=== PATIENT | female | born 1975 | race Caucasian/White ===

== ENCOUNTER 2018-07-19 15:34 | Emergency (ER) | payer MEDICAID, SELFPAY ==
[2018-07-19 15:41] VITALS: BP 161/91; PULSE 70; RESP 17; TEMP 36.7; O2SAT 99
[2018-07-19 18:46] LABS: Abs Immature Grans 0.02 k/cumm (0.0-0.09); Absolute Basophil Count 0.03 k/cumm (0.0-0.2); Absolute Eosinophil Count 0.19 k/cumm (0.0-0.7); Absolute Lymphocyte Count 3.41 k/cumm (1.2-3.4); Absolute Monocyte Count 1.06 k/cumm (0.11-0.7); Basophils % 0.2; Eosinophils % 1.3; HCT 38.5 % (36.0-46.0); HGB 12.6 g/dL (12.0-15.5); Immature Grans % 0.1; Lymphocytes % 23.4; Mean Corp. HGB Concentration 32.7 g/dL (32.0-36.0); Mean Corpuscular Hemoglobin 28.9 pg (27.0-33.0); Mean Corpuscular Volume 88.3 fL (80-95); Mean Platelet Volume 9.7 fL (8.0-11.0); Monocytes % 7.3; Neutrophils % 67.7; Platelet Count 361 x1000/uL (130-400); RBC 4.36 m/cumm (4.00-5.20); RBC Distribution Width 13.9 % (11.7-14.6); White Blood Cell Count 14.56 k/cumm (4.4-10.8)
[2018-07-19 18:50] LABS: Absolute Neutrophil Count 9.86 k/cumm (1.2-6.7)
[2018-07-19 18:54] LABS: Mono Screening Negative (Negative)
--- NOTE | 2018-07-19 19:14 | W.ED.GENAD ---
Discharge Plan Disposition Patient Disposition: HOME Condition: Good Discharge Details Chief Complaint: FacialProb Clinical Impression: Lymphadenopathy Primary Care Provider: Bhavna Ambrose ED Provider: Elio Pritchett Home Meds and New Rx's Prescriptions: Continue sumatriptan succinate 50 MG tablet 2 tab PO PRN PRNRF: 0 Discharge Instructions Instructions: Lymphadenopathy (ED) Additional Instructions: Return immediately to the emergency department for any new or worsening symptoms otherwise follow-up with your primary care provider later this week for reassessment Referrals: Bhavna Ambrose, [employer]ER [Primary Care Provider] - 1 week Discharge Data Discharge Date/Time-TO BE ENTERED AT DEPARTURE: 07/19/18 19:32 Medical Decision Making Patient presenting to the emergency department for chief complaint of swollen lymph node. She states it felt pea-sized and small this morning but throughout the day has increased. Patient denies any nasal congestion, cough cold, sore throat, fever chills, weight loss or weight gain. Given the patient does have unknown lymphadenopathy do feel that labs along with mono testing is warranted. After review of labs patient does have significant leukocytosis but negative Monospot. Given no specific other findings patient was given strict return precautions for any new or worsening symptoms otherwise to follow-up with her primary care provider this next week for reassessment of unknown lymphadenopathy. Given 1 day of rapid progression in size and elevated white count I feel that this is more than likely a reactive lymphadenopathy. after discussion of diagnosis and plan of care patient is no further needs, questions, or concerns and states clear understanding to return to the emergency department for any worsening symptoms. Lab Data Lab results reviewed: Yes I reviewed the patient's lab results. HPI General Mode of arrival: ambulatory. Date/Time Provider Initiated Documentation: 07/19/18 15:57. Limitations to Documentation: no limitations. Information obtained by: patient and RN notes reviewed. History of Present Illness 42 year old F presents to the emergency department with the chief complaint of Swollen lymph node, described as mild, with intensity rated at 4. Quality is described as dull, and is localized to the neck and right. Patient reports no radiation. Patient started experiencing this day(s) (1) and it has been constant. No relieving factors improve symptom(s), No exacerbating factors reported . Patient notes no other symptoms.. Patient did receive the following treatments prior to arrival, none Related Data Home Medications Medication Instructions Recorded Confirmed sumatriptan succinate 2 tab PO PRN PRN 03/10/17 07/19/18 Allergies Allergy/AdvReac Type Severity Reaction Status Date / Time erythromycin base AdvReac Intermediate Skin Rash Unverified 07/19/18 15:44 [Erythromycin Base] General Stated Complaint: FacialProb OLIVIA: 3 Review of Systems Constitutional Denies body ache(s), Denies chills, Denies fatigue, Denies fever(s), Denies headache(s), Denies lethargy and Denies malaise ENT Denies dental pain, Denies ear discharge, Denies otalgia, Denies facial pain, Denies headache(s), Denies nasal congestion, Denies neck pain, Denies post nasal drip, Denies sinus pain, Denies sore throat, Denies throat swelling and Denies tongue swelling Cardiovascular Denies chest pain and Denies dyspnea Respiratory Denies dyspnea Musculoskeletal Denies neck pain Integumentary/Breasts Denies rash Neurologic Denies confusion, Denies headache(s) and Denies sensory deficit Psychiatric Denies confusion Endocrine Denies fatigue Hematologic/Lymphatic Reports as per HPI and Reports lymphadenopathy Allergic/Immunologic Denies throat swelling and Denies tongue swelling PFSH Social History Smoking/Tobacco Use Status: Former Tobacco Use Exam Const General: cooperative, no acute distress and not ill appearing Orientation: alert, awake and oriented x3 HENMT Head: normal to inspection Ears: hearing grossly normal bilaterally and TM's normal bilaterally General nose exam: external nose normal Face and sinus: normal facial exam Mouth: oral mucosae normal and moist mucous membranes Teeth and gingiva: dentition normal Throat: posterior oropharynx normal Neck Lymphatic: lymphadenopathy (Right superior cervical single lymph node approximately 6-7mm) Resp Effort & Inspection: normal respiratory effort, able to speak in complete sentences and no respiratory distress Auscultation: clear to auscultation bilaterally Cardio Rate: regular rate Rhythm: regular rhythm Heart Sounds: S1 normal and S2 normal Skin General skin exam: no rashes or lesions noted Neuro General: alert, awake, oriented x3, moves all extremities and no focal motor deficits Sensory Exam: no sensory deficits noted Course Vital Signs Temperature 36.7 C 07/19/18 15:41 Pulse 70 07/19/18 15:41 Respiratory Rate 17 07/19/18 15:41 Blood Pressure 161/91 H 07/19/18 15:41 Pulse Oximetry 99 09/30/18 15:41 Temperature 36.7 C 07/19/18 15:41 Temperature Source Skin 07/19/18 15:41 Pulse 70 07/19/18 15:41 Respiratory Rate 17 07/19/18 15:41 Respiratory Effort 07/19/18 15:43 Blood Pressure 161/91 H 07/19/18 15:41 Blood Pressure Position Sitting 07/19/18 15:41 Pulse Oximetry 99 07/19/18 15:41 Oxygen Delivery Method Room Air 07/19/18 15:41 Oxygen Flow Rate 0 07/19/18 15:41 Pain Level 3 07/19/18 15:45 Lab/Test Results Lab/Test Results: Laboratory Tests Range/Units 07/19/18 07/19/18 18:40 18:40 WBC (4.4-10.8) k/cumm 14.56 H RBC (4.00-5.20) m/cumm 4.36 Hgb (12.0-15.5) g/dL 12.6 Hct (36.0-46.0) % 38.5 MCV (80-95) fL 88.3 MCH (27.0-33.0) pg 28.9 MCHC (32.0-36.0) g/dL 32.7 RDW (11.7-14.6) % 13.9 Plt Count (130-400) x1000/uL 361 MPV (8.0-11.0) fL 9.7 Immature Gran % 0.1 Neutrophils % 67.7 Lymphocytes % 23.4 Monocytes % 7.3 Eosinophils % 1.3 Basophils % 0.2 Absolute Neutrophils (1.2-6.7) k/cumm 9.86 H Absolute Lymphocytes (1.2-3.4) k/cumm 3.41 H Absolute Monocytes (0.11-0.7) k/cumm 1.06 H Absolute Eosinophils (0.0-0.7) k/cumm 0.19 Absolute Basophils (0.0-0.2) k/cumm 0.03 Monoscreen (Negative) Negative
--- NOTE | 2018-07-19 19:19 | ED.GENADUL_ITS ---
Discharge Plan Disposition Patient Disposition: HOME Condition: Good Discharge Details Chief Complaint: FacialProb Clinical Impression: Lymphadenopathy Primary Care Provider: Bhavna Ambrose ED Provider: Elio Pritchett Home Meds and New Rx's Prescriptions: Continue sumatriptan succinate 50 MG tablet 2 tab PO PRN PRNRF: 0 Discharge Instructions Instructions: Lymphadenopathy (ED) Additional Instructions: Return immediately to the emergency department for any new or worsening symptoms otherwise follow-up with your primary care provider later this week for reassessment Referrals: Bhavna Ambrose, MISSI[employer] INSPECTOR [employer] [Primary Care Provider] - 1 week Discharge Data Discharge Date/Time-TO BE ENTERED AT DEPARTURE: 07/19/18 19:32 Medical Decision Making Patient presenting to the emergency department for chief complaint of swollen lymph node. She states it felt pea-sized and small this morning but throughout the day has increased. Patient denies any nasal congestion, cough cold, sore throat, fever chills, weight loss or weight gain. Given the patient does have unknown lymphadenopathy do feel that labs along with mono testing is warranted. After review of labs patient does have significant leukocytosis but negative Monospot. Given no specific other findings patient was given strict return precautions for any new or worsening symptoms otherwise to follow-up with her primary care provider this next week for reassessment of unknown lymphadenopathy. Given 1 day of rapid progression in size and elevated white count I feel that this is more than likely a reactive lymphadenopathy. after discussion of diagnosis and plan of care patient is no further needs, questions , or concerns and states clear understanding to return to the emergency department for any worsening symptoms. Lab Data Lab results reviewed: Yes I reviewed the patient's lab results. HPI General Mode of arrival: ambulatory . Date/Time Provider Initiated Documentation: 07/19/18 15:57 . Limitations to Documentation: no limitations . Information obtained by: patient and RN notes reviewed . History of Present Illness 42 year old F presents to the emergency department with the chief complaint of Swollen lymph node, described as mild, with intensity rated at 4. Quality is described as dull, and is localized to the neck and right. Patient reports no radiation. Patient started experiencing this day(s) (1) and it has been constant. No relieving factors improve symptom(s), No exacerbating factors reported . Patient notes no other symptoms.. Patient did receive the following treatments prior to arrival, none Related Data Home Medications Medication Instructions Recorded Confirmed sumatriptan succinate 2 tab PO PRN PRN 03/10/17 07/19/18 Allergies Allergy/AdvReac Type Severity Reaction Status Date / Time erythromycin base AdvReac Intermediate Skin Rash Unverified 07/19/18 15:44 [Erythromycin Base] General Stated Complaint: FacialProb OLIVIA: 3 Review of Systems Constitutional Denies body ache(s), Denies chills, Denies fatigue, Denies fever(s), Denies headache(s), Denies lethargy and Denies malaise ENT Denies dental pain, Denies ear discharge, Denies otalgia, Denies facial pain, Denies headache(s), Denies nasal congestion, Denies neck pain, Denies post nasal drip, Denies sinus pain, Denies sore throat, Denies throat swelling and Denies tongue swelling Cardiovascular Denies chest pain and Denies dyspnea Respiratory Denies dyspnea Musculoskeletal Denies neck pain Integumentary/Breasts Denies rash Neurologic Denies confusion, Denies headache(s) and Denies sensory deficit Psychiatric Denies confusion Endocrine Denies fatigue Hematologic/Lymphatic Reports as per HPI and Reports lymphadenopathy Allergic/Immunologic Denies throat swelling and Denies tongue swelling PFSH Social History Smoking/Tobacco Use Status: Former Tobacco Use Exam Const General: cooperative, no acute distress and not ill appearing Orientation: alert, awake and oriented x3 HENMT Head: normal to inspection Ears: hearing grossly normal bilaterally and TM's normal bilaterally General nose exam: external nose normal Face and sinus: normal facial exam Mouth: oral mucosae normal and moist mucous membranes Teeth and gingiva: dentition normal Throat: posterior oropharynx normal Neck Lymphatic: lymphadenopathy (Right superior cervical single lymph node approximately 6-7mm) Resp Effort & Inspection: normal respiratory effort, able to speak in complete sentences and no respiratory distress Auscultation: clear to auscultation bilaterally Cardio Rate: regular rate Rhythm: regular rhythm Heart Sounds: S1 normal and S2 normal Skin General skin exam: no rashes or lesions noted Neuro General: alert, awake, oriented x3, moves all extremities and no focal motor deficits Sensory Exam: no sensory deficits noted Course Vital Signs Temperature 36.7 C 07/19/18 15:41 Pulse 70 07/19/18 15:41 Respiratory Rate 17 07/19/18 15:41 Blood Pressure 161/91 H 07/19/18 15:41 Pulse Oximetry 99 09/30/18 15:41 Temperature 36.7 C 07/19/18 15:41 Temperature Source Skin 07/19/18 15:41 Pulse 70 07/19/18 15:41 Respiratory Rate 17 07/19/18 15:41 Respiratory Effort 07/19/18 15:43 Blood Pressure 161/91 H 07/19/18 15:41 Blood Pressure Position Sitting 07/19/18 15:41 Pulse Oximetry 99 07/19/18 15:41 Oxygen Delivery Method Room Air 07/19/18 15:41 Oxygen Flow Rate 0 07/19/18 15:41 Pain Level 3 07/19/18 15:45 Lab/Test Results Lab/Test Results: Laboratory Tests Range/Units 07/19/18 07/19/18 18:40 18:40 WBC (4.4-10.8) k/cumm 14.56 H RBC (4.00-5.20) m/cumm 4.36 Hgb (12.0-15.5) g/dL 12.6 Hct (36.0-46.0) % 38.5 MCV (80-95) fL 88.3 MCH (27.0-33.0) pg 28.9 MCHC (32.0-36.0) g/dL 32.7 RDW (11.7-14.6) % 13.9 Plt Count (130-400) x1000/uL 361 MPV (8.0-11.0) fL 9.7 Immature Gran % 0.1 Neutrophils % 67.7 Lymphocytes % 23.4 Monocytes % 7.3 Eosinophils % 1.3 Basophils % 0.2 Absolute Neutrophils (1.2-6.7) k/cumm 9.86 H Absolute Lymphocytes (1.2-3.4) k/cumm 3.41 H Absolute Monocytes (0.11-0.7) k/cumm 1.06 H Absolute Eosinophils (0.0-0.7) k/cumm 0.19 Absolute Basophils (0.0-0.2) k/cumm 0.03 Monoscreen (Negative) Negative
[2018-07-19 19:34] VITALS: BP 112/80; PULSE 88; RESP 18; TEMP 36.8; O2SAT 99
--- NOTE | 2018-07-20 09:24 | PDOC.ERCMPRO ---
Care Management Progress Note 07/20/18-Pt was seen on 07/19/18 for facial lympadenopathy byJeremiah Martinez NP. Request for 1 week f/u faxed to [facility] as Bhavna Ambrose is Pt's PCP.
--- NOTE | 2018-07-20 09:38 | CMPROGNOTE_ITS ---
Care Management Progress Note 07/20/18-Pt was seen on 07/19/18 for facial lympadenopathy byJeremiah Martinez NP. Request for 1 week f/u faxed to [facility] as Bhavna Ambrose is Pt's PCP.
== END 2018-07-19 19:32 | disposition home or self-care (01) ==
PROVIDERS: Emergency Provider Nurse Practitioner Family
DX: R59.0 Localized enlarged lymph nodes (principal)
CPT/HCPCS: 36415; 99281; 85025; 86308

== ENCOUNTER 2018-07-28 01:57 | Outpatient (CLI) | payer MEDICAID, SELFPAY ==
[2018-07-28 10:12] LABS: ALT 18 U/L (12-78); AST 9 U/L (15-37); Albumin 3.6 g/dL (3.4-5.0); Alkaline Phosphatase 78 U/L (46-116); Anion Gap 7.3 mmol/L (3-11); BUN 11 mg/dL (7-18); Bilirubin, Total 0.1 mg/dL (0.2-1.0); CO2 27.7 mmol/L (21.0-32.0); CREATININE 0.82 mg/dL (0.55-1.02); Calcium 8.3 mg/dL (8.5-10.1); Chloride 106 mmol/L (98-107); Cholesterol 153 mg/dL (50-200); Glucose 87 mg/dL (70-100); HDL Cholesterol 47 mg/dL (40-60); LDL CHOLESTEROL 92 mg/dL (<100); Potassium 4.2 mmol/L (3.5-5.1); Sodium 141 mmol/L (136-145); Total Protein 7.3 g/dL (6.4-8.2); Triglyceride 59 mg/dL (30-150)
== END 2018-07-28 02:17 ==
DX: G43.909 Migraine, unspecified, not intractable, without status migrainosus (principal); F41.9 Anxiety disorder, unspecified; F32.9 Major depressive disorder, single episode, unspecified; M54.5 Low back pain; G89.29 Other chronic pain; E66.9 Obesity, unspecified
CPT/HCPCS: 36415; 80053; 80061; 83721

== ENCOUNTER 2018-08-06 01:28 | Outpatient (CLI) | payer MEDICAID, SELFPAY ==
--- NOTE | 2018-08-06 15:07 | DI.MAMMO_ITS ---
SYMPTOM/DIAGNOSIS: SCREENING, Z12.31, BASELINE MAMMOGRAMS: Mammograms were interpreted according to the usual protocol including computer analysis with CAD system, tomosynthesis and C view imaging. The breast tissue is of moderate radiodensity. There is no evidence of a mass. There are no suspicious calcifications and there is no evidence of malignancy. SUMMARY: The baseline examination represents a Category 1 study. Routine annual screening mammography is recommended. Breast density, category B. SA ASSESSMENT OF FINDINGS: Negative. Category 1. Patient will receive a letter notifying them of these results. BI-RADS category B. There are scattered areas of fibroglandular density.
== END 2018-08-06 01:48 ==
DX: Z12.31 Encounter for screening mammogram for malignant neoplasm of breast (principal)
CPT/HCPCS: 77063; 77067

== ENCOUNTER 2018-10-23 10:08 | Emergency (ER) | payer MEDICAID, SELFPAY ==
[2018-10-23 10:19] VITALS: BP 159/85; PULSE 68; RESP 16; TEMP 36; O2SAT 100
--- NOTE | 2018-10-23 12:44 | W.ED.GENAD ---
Discharge Plan Disposition Patient Disposition: HOME Condition: Stable Discharge Details Chief Complaint: FacialProb Clinical Impression: Facial swelling Primary Care Provider: Bhanva Ambrose ED Provider: Jocelyn Leonardo Home Meds and New Rx's Prescriptions: New amoxicillin-pot clavulanate [Augmentin] 875-125 mg tablet 1 tab PO BID 10 Days Qty: 20 RF: 0 Continued sumatriptan succinate 100 mg tablet See Rx Instructions PO .COMPLEX Qty: 10 RF: 0 Discharge Instructions Instructions: Dental Caries (ED), Sinusitis (ED) Additional Instructions: Alternate Tylenol and Motrin as needed and directed for pain Take the antibiotics until finished. Follow-up with your primary care doctor in 1 week for reevaluation. Follow-up with your dentist for reevaluation. Return immediately to the emergency department any worsening or new concerning symptoms such as fever, headache, neck pain or any other concerns. Discharge Data Discharge Date/Time-TO BE ENTERED AT DEPARTURE: 10/23/18 13:25 Discharge Physician: Jocelyn Leonardo Medical Decision Making Patient is a 42-year-old female with a history of anxiety and migraines who presents with facial pain since yesterday morning. Patient states she feels like she has swelling and pain just below her nose and above her upper teeth. She denies any known fever, nasal discharge or known dental pain or injury. Blood pressure mildly hypertensive. Afebrile. Patient appears nontoxic. She has mild edema and tenderness to palpation just below bilateral nares. She has tenderness to palpation above the upper teeth in the front but no obvious abscess. No teeth tender to palpation. Sinuses nontender bilaterally. No lymphadenopathy. No meningeal signs. Remainder of ENT exam within normal limits, with normal oropharynx and TMs bilaterally. Differential diagnosis includes sinus infection, dental infection, cellulitis. As patient appears nontoxic and in no acute distress, and no fever, I do not see an indication for labs or imaging at this time patient is agreeable. Due to mild edema and pain, will treat with antibiotics for possible infection. Patient offered dose here but declines and will fill prescription. Will send home with Augmentin to cover for possible dental versus sinus infection. Pt was instructed to return immediately to the emergency department if she develops any fevers, headaches, neck pain or any worsening symptoms. HPI General Mode of arrival: ambulatory. Date/Time Provider Initiated Documentation: 10/23/18 10:33. Limitations to Documentation: no limitations. Information obtained by: patient. HPI Narrative: Patient is a 42-year-old female who presents with facial pain and swelling since yesterday morning. Patient states she awoke and noted the area right below her nose and above her upper lip and teeth to be swollen and painful. She states the swelling and pain is increased since then. Patient has been taking Tylenol and Motrin for pain without relief. Patient denies any known fever, nasal discharge, sore throat, ear pain, neck pain, headache. She denies any known dental injury or dental pain. Related Data Home Medications Medication Instructions Recorded Confirmed sumatriptan 100 mg tablet See Rx Instructions PO .COMPLEX 07/27/18 10/23/18 #10 tab amoxicillin-pot clavulanate 1 tab PO BID 10 Days #20 tab 10/23/18 [Augmentin] Previous Rx's Medication Instructions Recorded sumatriptan 100 mg tablet See Rx Instructions PO .COMPLEX 07/27/18 #10 tab amoxicillin-pot clavulanate 1 tab PO BID 10 Days #20 tab 10/23/18 [Augmentin] Allergies Allergy/AdvReac Type Severity Reaction Status Date / Time erythromycin base AdvReac Intermediate Skin Rash Unverified 10/23/18 10:24 [Erythromycin Base] General Stated Complaint: FacialProb OLIVIA: 3 Review of Systems Review of Systems All systems reviewed & are unremarkable except as noted in HPI and below Constitutional Reports as per HPI, Denies chills and Denies fever(s) Eyes Denies blurry vision ENT Denies dizziness, Reports facial pain, Denies sore throat, Denies throat swelling and Reports other (Facial swelling) Cardiovascular Denies chest pain and Denies dyspnea Respiratory Denies dyspnea Gastrointestinal Denies abdominal pain, Denies diarrhea and Denies vomiting Genitourinary Denies hematuria and Denies dysuria Musculoskeletal Denies back pain and Denies numbness Integumentary/Breasts Denies lesions and Denies rash Neurologic Denies dizziness and Denies numbness Allergic/Immunologic Denies throat swelling [facility] Medical History Anxiety (Chronic) Migraine (Chronic) Surgical History History of bilateral tubal ligation (Acute) Family History Mother Alcohol abuse Brother Substance abuse Maternal Grandmother Heart disease Son Alcohol abuse Daughter Asthma Daughter Depression Anxiety Social History current occupational status: employed 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 pets and animals: Yes pets and animals: cat(s) and dog(s) frequency: 3-4 times per week duration: 15-30 minutes/day Smoking/Tobacco Use Status: Former Tobacco Use quit date: 11/20/15 passive smoking exposure: Yes alcohol intake: current alcohol intake frequency: holidays/special occasions only Alcohol type: wine substance use type: marijuana homero/restorationist: No preference special homero needs: No Exam Const General: cooperative, healthy appearing and no acute distress HENMT Head: normal to inspection Ears: hearing grossly normal bilaterally, external ears normal and TM's normal bilaterally General nose exam: external nose normal, nares normal, no nasal discharge, no epistaxis and nasal discharge Face and sinus: sinuses nontender, no ecchymosis, no erythema and edema (Mild noted to area just below bilateral nares above upper lip w/ tenderness) Mouth: oral mucosae normal Teeth and gingiva: caries, poor dentition and other (No dental abscess. No tenderness to palpation of teeth.) Throat: posterior oropharynx normal Eyes General: appearance normal, both eyes and all related structures Pupils: PERRL EOM: EOM intact bilaterally Neck Neck: normal visual inspection and No submandibular swelling Lymphatic: no lymphadenopathy noted Chest Chest: normal inspection of the chest and no tenderness Resp Effort & Inspection: normal respiratory effort and able to speak in complete sentences Auscultation: clear to auscultation bilaterally Cardio Rate: regular rate Rhythm: regular rhythm GI Inspection: normal to inspection Skin General skin exam: no rashes or lesions noted Neuro General: alert, awake, oriented x3, gait normal and no meningeal signs Cognition: normal cognition Speech: speech normal Motor: muscle tone normal throughout Sensory Exam: no sensory deficits noted Extrem General: normal to inspection and full ROM Psych Appearance: grossly normal Mental Status: mental status grossly normal Speech and Movement: speech and movement normal Affect: normal affect Course Vital Signs Temperature 96.8 F L 10/23/18 10:19 Pulse 68 10/23/18 10:19 Respiratory Rate 16 10/23/18 10:19 Blood Pressure 159/85 H 10/23/18 10:19 Pulse Oximetry 100 10/23/18 10:19 Temperature 96.8 F L 10/23/18 10:19 Temperature Source Temporal Artery Scan 10/23/18 10:19 Pulse 68 10/23/18 10:19 Respiratory Rate 16 10/23/18 10:19 Respiratory Effort Non-Labored 10/23/18 10:23 Blood Pressure 159/85 H 10/23/18 10:19 Blood Pressure Position Sitting 10/23/18 10:19 Pulse Oximetry 100 10/23/18 10:19 Oxygen Delivery Method Room Air 10/23/18 10:19 Oxygen Flow Rate 0 10/23/18 10:19 Pain Level 6 10/23/18 10:25 Comment 10/23/18 10:19
--- NOTE | 2018-10-23 12:47 | ED.GENADUL_ITS ---
Discharge Plan Disposition Patient Disposition: HOME Condition: Stable Discharge Details Chief Complaint: FacialProb Clinical Impression: Facial swelling Primary Care Provider: Bhavna Ambrose ED Provider: Jocelyn Leonardo Home Meds and New Rx's Prescriptions: New amoxicillin-pot clavulanate [Augmentin] 875-125 mg tablet 1 tab PO BID 10 Days Qty: 20 RF: 0 Continued sumatriptan succinate 100 mg tablet See Rx Instructions PO .COMPLEX Qty: 10 RF: 0 Discharge Instructions Instructions: Dental Caries (ED), Sinusitis (ED) Additional Instructions: Alternate Tylenol and Motrin as needed and directed for pain Take the antibiotics until finished. Follow-up with your primary care doctor in 1 week for reevaluation. Follow-up with your dentist for reevaluation. Return immediately to the emergency department any worsening or new concerning symptoms such as fever, headache, neck pain or any other concerns. Discharge Data Discharge Date/Time-TO BE ENTERED AT DEPARTURE: 10/23/18 13:25 Discharge Physician: Jocelyn Leonardo Medical Decision Making Patient is a 42-year-old female with a history of anxiety and migraines who presents with facial pain since yesterday morning. Patient states she feels like she has swelling and pain just below her nose and above her upper teeth. She denies any known fever, nasal discharge or known dental pain or injury. Blood pressure mildly hypertensive. Afebrile. Patient appears nontoxic. She has mild edema and tenderness to palpation just below bilateral nares. She has tenderness to palpation above the upper teeth in the front but no obvious abscess. No teeth tender to palpation. Sinuses nontender bilaterally. No lymphadenopathy. No meningeal signs. Remainder of ENT exam within normal limits, with normal oropharynx and TMs bilaterally. Differential diagnosis includes sinus infection, dental infection, cellulitis. As patient appears nontoxic and in no acute distress, and no fever, I do not see an indication for labs or imaging at this time patient is agreeable. Due to m ild edema and pain, will treat with antibiotics for possible infection. Patient offered dose here but declines and will fill prescription. Will send home with Augmentin to cover for possible dental versus sinus infection. Pt was instructed to return immediately to the emergency department if she develops any fevers, headaches, neck pain or any worsening symptoms. HPI General Mode of arrival: ambulatory . Date/Time Provider Initiated Documentation: 10/23/18 10:33 . Limitations to Documentation: no limitations . Information obtained by: patient . HPI Narrative: Patient is a 42-year-old female who presents with facial pain and swelling since yesterday morning. Patient states she awoke and noted the area right below her nose and above her upper lip and teeth to be swollen and painful. She states the swelling and pain is increased since then. Patient has been taking Tylenol and Motrin for pain without relief. Patient denies any known fever, nasal discharge, sore throat, ear pain, neck pain, headache. She denies any known dental injury or dental pain. Related Data Home Medications Medication Instructions Recorded Confirmed sumatriptan 100 mg tablet See Rx Instructions PO .COMPLEX 07/27/18 10/23/18 #10 tab amoxicillin-pot clavulanate 1 tab PO BID 10 Days #20 tab 10/23/18 [Augmentin] Previous Rx's Medication Instructions Recorded sumatriptan 100 mg tablet See Rx Instructions PO .COMPLEX 07/27/18 #10 tab amoxicillin-pot clavulanate 1 tab PO BID 10 Days #20 tab 10/23/18 [Augmentin] Allergies Allergy/AdvReac Type Severity Reaction Status Date / Time erythromycin base AdvReac Intermediate Skin Rash Unverified 10/23/18 10:24 [Erythromycin Base] General Stated Complaint: FacialProb OLIVIA: 3 Review of Systems Review of Systems All systems reviewed & are unremarkable except as noted in HPI and below Constitutional Reports as per HPI, Denies chills and Denies fever(s) Eyes Denies blurry vision ENT Denies dizziness, Reports facial pain, Denies sore throat, Denies throat swelling and Reports other (Facial swelling) Cardiovascular Denies chest pain and Denies dyspnea Respiratory Denies dyspnea Gastrointestinal Denies abdominal pain, Denies diarrhea and Denies vomiting Genitourinary Denies hematuria and Denies dysuria Musculoskeletal Denies back pain and Denies numbness Integumentary/Breasts Denies lesions and Denies rash Neurologic Denies dizziness and Denies numbness Allergic/Immunologic Denies throat swelling [facility] Medical History Anxiety (Chronic) Migraine (Chronic) Surgical History History of bilateral tubal ligation (Acute) Family History Mother Alcohol abuse Brother Substance abuse Maternal Grandmother Heart disease Son Alcohol abuse Daughter Asthma Daughter Depression Anxiety Social History current occupational status: employed 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[employer] pets and animals: Yes pets and animals: cat(s) and dog(s) frequency: 3-4 times per week duration: 15-30 minutes/day Smoking/Tobacco Use Status: Former Tobacco Use quit date: 11/20/15 passive smoking exposure: Yes alcohol intake: current alcohol intake frequency: holidays/special occasions only Alcohol type: wine substance use type: marijuana homero/methodist: No preference special homero needs: No Exam Const General: cooperative, healthy appearing and no acute distress HENMT Head: normal to inspection Ears: hearing grossly normal bilaterally, external ears normal and TM's normal bilaterally General nose exam: external nose normal, nares normal, no nasal discharge, no epistaxis and nasal discharge Face and sinus: sinuses nontender, no ecchymosis, no erythema and edema (Mild noted to area just below bilateral nares above upper lip w/ tenderness) Mouth: oral mucosae normal Teeth and gingiva: caries, poor dentition and other (No dental abscess. No tenderness to palpation of teeth.) Throat: posterior oropharynx normal Eyes General: appearance normal, both eyes and all related structures Pupils: PERRL EOM: EOM intact bilaterally Neck Neck: normal visual inspection and No submandibular swelling Lymphatic: no lymphadenopathy noted Chest Chest: normal inspection of the chest and no tenderness Resp Effort & Inspection: normal respiratory effort and able to speak in complete sentences Auscultation: clear to auscultation bilaterally Cardio Rate: regular rate Rhythm: regular rhythm GI Inspection: normal to inspection Skin General skin exam: no rashes or lesions noted Neuro General: alert, awake, oriented x3, gait normal and no meningeal signs Cognition: normal cognition Speech: speech normal Motor: muscle tone normal throughout Sensory Exam: no sensory deficits noted Extrem General: normal to inspection and full ROM Psych Appearance: grossly normal Mental Status: mental status grossly normal Speech and Movement: speech and movement normal Affect: normal affect Course Vital Signs Temperature 96.8 F L 10/23/18 10:19 Pulse 68 10/23/18 10:19 Respiratory Rate 16 01/04/19 10:19 Blood Pressure 159/85 H 10/23/18 10:19 Pulse Oximetry 100 10/23/18 10:19 Temperature 96.8 F L 10/23/18 10:19 Temperature Source Temporal Artery Scan 10/23/18 10:19 Pulse 68 10/23/18 10:19 Respiratory Rate 16 10/23/18 10:19 Respiratory Effort Non-Labored 10/23/18 10:23 Blood Pressure 159/85 H 10/23/18 10:19 Blood Pressure Position Sitting 10/23/18 10:19 Pulse Oximetry 100 10/23/18 10:19 Oxygen Delivery Method Room Air 10/23/18 10:19 Oxygen Flow Rate 0 10/23/18 10:19 Pain Level 6 10/23/18 10:25 Comment 10/23/18 10:19
== END 2018-10-23 13:25 | disposition home or self-care (01) ==
PROVIDERS: Emergency Provider Physician Assistant
DX: R22.0 Localized swelling, mass and lump, head (principal)
CPT/HCPCS: 99283

== ENCOUNTER 2018-10-26 13:27 | Emergency (ER) | payer MEDICAID, SELFPAY ==
[2018-10-26 13:32] VITALS: BP 163/68; PULSE 66; RESP 16; TEMP 37; O2SAT 99
--- NOTE | 2018-10-26 15:09 | DI.CT_ITS ---
SYMPTOM/DIAGNOSIS: HEADACHE NONCONTRAST HEAD CT: A noncontrast exam was performed. There is a normal dhillon white matter differentiation. No intracranial hemorrhage, infarct, acute midline shift or mass effect. The ventricles are intact. The basilar cisterns are patent. The calvarium is intact. There is mild mucosal thickening seen in the maxillary sinuses and ethmoid air cells. No fluid levels are seen. The mastoid air cells are well pneumatized. There is lucency seen around the roots of the first left incisor and the left canine suspicious for abiola-apical periodontal disease. There is mild soft tissue swelling around the left first incisor but no definite abscess is appreciated. IMPRESSION: 1. No acute intracranial process. 2. Periodontal disease as described above. The findings were discussed with Dr Shahid of the ER on the date of the examination.
--- NOTE | 2018-10-26 15:10 | W.ED.GENAD ---
Discharge Plan Disposition Patient Disposition: HOME Discharge Details Chief Complaint: Headache Clinical Impression: Headache, Dental infection Primary Care Provider: Bhavna Ambrose ED Provider: Mookie Shahid Home Meds and New Rx's Prescriptions: Continued sumatriptan succinate 100 mg tablet See Rx Instructions PO .COMPLEX Qty: 10 RF: 0 amoxicillin-pot clavulanate [Augmentin] 875-125 mg tablet 1 tab PO BID 10 Days Qty: 20 RF: 0 Discharge Instructions Instructions: Dental Abscess (ED) Additional Instructions: Please take antibiotic as prescribed. Please contact your primary care physician to arrange follow-up. Please also follow-up with your dentist. Call for an appointment as soon as possible. Return to the ER for any worsening or new concerning symptoms or at any time for further diagnostic testing including recommended lumbar puncture. Referrals: Bhavna Ambrose NP [Primary Care Provider] - Medical Decision Making 15:30 --42-year-old female with history of migraine headaches here with severe headache. Neurologically intact. Patient also with pain in swelling of her philtrum. She was seen here a couple days ago for this and started on Augmentin. Swelling is improved. Concern for likely dental abscess. Plan to CT head and proceed to lumbar puncture given severity of headache. I called radiologist and asked for extension of CT to the area of tenderness above her left upper incisor. Plan to treat pain and nausea with Compazine IV, Benadryl IV, Toradol IV, IV fluids 16:25 -- CT head interpreted by radiology: no acute intracranial pathology, there is some swelling and periodontal disease above left incisor and canine with no focal fluid collection. I reassessed patient: pain improved. I discussed plan to proceed to lumbar puncture with the patient. We reviewed risks and benefits of the procedure. Patient has decisional making capacity at this time and refuses procedure. I specifically explained the risks of refusing procedure including potential life-threatening her lifestyle modifying disease that would go undiagnosed. Patient continued to refuse noting that she feels better and believes this was just a severe migraine headache. I encouraged her to return to emerge department immediately should she have any worsening symptoms or would like to pursue additional diagnostic testing. Disposition decision was made weighing the risks and benefits of hospitalization versus outpatient treatment, the risk for further decompensation, and the patient's wishes. The patient was stable and requested discharge. Prior to discharge, my usual and customary return precautions were reviewed with the patient - this included follow-up instructions and reason to return to the emergency department if condition worsens, does not improve as expected, or other new concerns arise. HPI General Mode of arrival: ambulatory. Date/Time Provider Initiated Documentation: 10/26/18 14:35. Limitations to Documentation: no limitations. Information obtained by: patient. HPI Narrative: 42-year-old female with history of migraine headaches, here with chief complaint of headache. Patient notes her headache started last night and has persisted. Headache worse this morning. Headache localized to frontal head. Headache is severe. Worse with light exposure. No associated neck stiffness. No fevers. She does have associated vomiting. She notes that she was seen here a few days ago for swelling and pain of her philtrum and diagnosed with dental infection vs sinusitis and started on augmentin. Related Data Home Medications Medication Instructions Recorded Confirmed sumatriptan 100 mg tablet See Rx Instructions PO .COMPLEX 07/27/18 10/26/18 #10 tab amoxicillin-pot clavulanate 1 tab PO BID 10 Days #20 tab 10/23/18 10/26/18 [Augmentin] Previous Rx's Medication Instructions Recorded sumatriptan 100 mg tablet See Rx Instructions PO .COMPLEX 07/27/18 #10 tab amoxicillin-pot clavulanate 1 tab PO BID 10 Days #20 tab 10/23/18 [Augmentin] Allergies Allergy/AdvReac Type Severity Reaction Status Date / Time erythromycin base AdvReac Intermediate Skin Rash Unverified 10/26/18 13:35 [Erythromycin Base] General Stated Complaint: Headache OLIVIA: 3 Review of Systems Review of Systems All systems reviewed & are unremarkable except as noted in HPI and below Constitutional Reports headache(s) and Denies weakness Eyes Denies loss of vision ENT Denies dizziness and Reports headache(s) Gastrointestinal Reports vomiting Musculoskeletal Denies numbness Neurologic Reports as per HPI, Denies abnormal speech, Denies confusion, Denies dizziness, Reports headache(s), Denies loss of vision, Denies numbness, Denies convulsions and Denies weakness Psychiatric Denies confusion [facility] Medical History Anxiety (Chronic) Migraine (Chronic) Surgical History History of bilateral tubal ligation (Acute) Family History Mother Alcohol abuse Brother Substance abuse Maternal Grandmother Heart disease Son Alcohol abuse Daughter Asthma Daughter Depression Anxiety Social History current occupational status: employed 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ICE pets and animals: Yes pets and animals: cat(s) and dog(s) frequency: 3-4 times per week duration: 15-30 minutes/day Smoking/Tobacco Use Status: Former Tobacco Use quit date: 11/20/15 passive smoking exposure: Yes alcohol intake: current alcohol intake frequency: holidays/special occasions only Alcohol type: wine substance use type: marijuana homero/taoism: No preference special homero needs: No Exam Const General: cooperative and uncomfortable Orientation: alert, awake and oriented x3 HENMT Head: normocephalic and atraumatic General nose exam: external nose normal and nares normal Nose image: 1. mild swelling and tenderness, no fluctuance or erythema Face and sinus: no erythema and no fluctuance Mouth: moist mucous membranes Teeth and gingiva: poor dentition (tooth #9, no palpable abscess) Throat: posterior oropharynx normal Eyes Conjunctivae: normal conjunctivae Sclera: normal sclerae Pupils: PERRL EOM: EOM intact bilaterally Neck Neck: full ROM, no meningeal signs, trachea midline and supple Resp Auscultation: clear to auscultation bilaterally, no rales, no rhonchi and no wheezes Cardio Jugular venous pressure: no JVD Rate: regular rate and not tachycardic Rhythm: regular rhythm GI Palpation: soft, not firm, no guarding, no masses, not rigid and nontender Skin General skin exam: no rashes or lesions noted Neuro General: alert, awake, oriented x3 and tone normal Cranial Nerves: CN's II-XI intact bilaterally Cognition: normal cognition Speech: speech normal Motor: muscle tone normal throughout and strength 5/5 throughout Sensory Exam: no sensory deficits noted Extrem General: no edema Psych Appearance: grossly normal Mental Status: mental status grossly normal Speech and Movement: speech and movement normal Course Vital Signs Temperature 37 C 10/26/18 13:32 Pulse 66 10/26/18 13:32 Respiratory Rate 16 10/26/18 13:32 Blood Pressure 163/68 H 10/26/18 13:32 Pulse Oximetry 99 10/26/18 13:32 Temperature 37 C 10/26/18 13:32 Temperature Source Skin 10/26/18 13:32 Pulse 66 10/26/18 13:32 Respiratory Rate 16 10/26/18 13:32 Respiratory Effort Non-Labored 10/26/18 13:32 Blood Pressure 163/68 H 10/26/18 13:32 Blood Pressure Position Sitting 10/26/18 13:32 Pulse Oximetry 99 10/26/18 13:32 Oxygen Delivery Method Room Air 10/26/18 13:32 Oxygen Flow Rate 0 10/26/18 13:32 Pain Level 10 10/26/18 13:32
[2018-10-26] MEDS: Lactated Ringers 1,000 ML 1000 ML IV (15:27)
[2018-10-26] MEDS: Ketorolac 30 MG/ML VIAL IVP (15:28)
[2018-10-26] MEDS: diphenhydrAMINE 50 MG/ML VIAL 25 MG IVP (15:30)
[2018-10-26] MEDS: Prochlorperazine 10 MG/2 ML VIAL IVP (15:32)
--- NOTE | 2018-10-26 15:32 | ED.GENADUL_ITS ---
Discharge Plan Disposition Patient Disposition: HOME Discharge Details Chief Complaint: Headache Clinical Impression: Headache, Dental infection Primary Care Provider: Bhavna Ambrose ED Provider: Mookie Shahid Home Meds and New Rx's Prescriptions: Continued sumatriptan succinate 100 mg tablet See Rx Instructions PO .COMPLEX Qty: 10 RF: 0 amoxicillin-pot clavulanate [Augmentin] 875-125 mg tablet 1 tab PO BID 10 Days Qty: 20 RF: 0 Discharge Instructions Instructions: Dental Abscess (ED) Additional Instructions: Please take antibiotic as prescribed. Please contact your primary care physician to arrange follow-up. Please also follow-up with your dentist. Call for an appointment as soon as possible. Return to the ER for any worsening or new concerning symptoms or at any time for further diagnostic testing including recommended lumbar puncture. Referrals: Bhavna Ambrose NP [Primary Care Provider] - Medical Decision Making 15:30 --42-year-old female with history of migraine headaches here with severe headache. Neurologically intact. Patient also with pain in swelling of her philtrum. She was seen here a couple days ago for this and started on Augmentin. Swelling is improved. Concern for likely dental abscess. Plan to CT head and proceed to lumbar puncture given severity of headache. I called radiologist and asked for extension of CT to the area of tenderness above her left upper incisor. Plan to treat pain and nausea with Compazine IV, Benadryl IV, Toradol IV, IV fluids 16:25 -- CT head interpreted by radiology: no acute intracranial pathology, ther e is some swelling and periodontal disease above left incisor and canine with no focal fluid collection. I reassessed patient: pain improved. I discussed plan to proceed to lumbar puncture with the patient. We reviewed risks and benefits of the procedure. Patient has decisional making capacity at this time and refuses procedure. I specifically explained the risks of refusing procedure including potential life-threatening her lifestyle modifying disease that would go undiagnosed. Patient continued to refuse noting that she feels better and believes this was just a severe migraine headache. I encouraged her to return to emerge department immediately should she have any worsening sympto ms or would like to pursue additional diagnostic testing. Disposition decision was made weighing the risks and benefits of hospitalization versus outpatient treatment, the risk for further decompensation, and the patient's wishes. The patient was stable and requested discharge. Prior to discharge, my usual and customary return precautions were reviewed with the patient - this included follow-up instructions and reason to return to the emergency department if condition worsens, does not improve as expected, or other new concerns arise. HPI General Mode of arrival: ambulatory . Date/Time Provider Initiated Documentation: 10/26/18 14:35 . Limitations to Documentation: no limitations . Information obtained by: patient . HPI Narrative: 42-year-old female with history of migraine headaches, here with chief complaint of headache. Patient notes her headache started last night and has persisted. Headache worse this morning. Headache localized to frontal head. Headache is severe. Worse with light exposure. No associated neck stiffness. No fevers. She does have associated vomiting. She notes that she was seen here a few days ago for swelling and pain of her philtrum and diagnosed with dental infection vs sinusitis and started on augmentin. Related Data Home Medications Medication Instructions Recorded Confirmed sumatriptan 100 mg tablet See Rx Instructions PO .COMPLEX 07/27/18 10/26/18 #10 tab amoxicillin-pot clavulanate 1 tab PO BID 10 Days #20 tab 10/23/18 10/26/18 [Augmentin] Previous Rx's Medication Instructions Recorded sumatriptan 100 mg tablet See Rx Instructions PO .COMPLEX 07/27/18 #10 tab amoxicillin-pot clavulanate 1 tab PO BID 10 Days #20 tab 10/23/18 [Augmentin] Allergies Allergy/AdvReac Type Severity Reaction Status Date / Time erythromycin base AdvReac Intermediate Skin Rash Unverified 10/26/18 13:35 [Erythromycin Base] General Stated Complaint: Headache OLIVIA: 3 Review of Systems Review of Systems All systems reviewed & are unremarkable except as noted in HPI and below Constitutional Reports headache(s) and Denies weakness Eyes Denies loss of vision ENT Denies dizziness and Reports headache(s) Gastrointestinal Reports vomiting Musculoskeletal Denies numbness Neurologic Reports as per HPI, Denies abnormal speech, Denies confusion, Denies dizziness, Reports headache(s), Denies loss of vision, Denies numbness, Denies convulsions and Denies weakness Psychiatric Denies confusion [facility] Medical History Anxiety (Chronic) Migraine (Chronic) Surgical History History of bilateral tubal ligation (Acute) Family History Mother Alcohol abuse Brother Substance abuse Maternal Grandmother Heart disease Son Alcohol abuse Daughter Asthma Daughter Depression Anxiety Social History current occupational status: employed 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ICE pets and animals: Yes pets and animals: cat(s) and dog(s) frequency: 3-4 times per week duration: 15-30 minutes/day Smoking/Tobacco Use Status: Former Tobacco Use quit date: 11/20/15 passive smoking exposure: Yes alcohol intake: current alcohol intake frequency: holidays/special occasions only Alcohol type: wine substance use type: marijuana homero/anglican: No preference special homero needs: No Exam Const General: cooperative and uncomfortable Orientation: alert, awake and oriented x3 HENMT Head: normocephalic and atraumatic General nose exam: external nose normal and nares normal Nose image: 1. mild swelling and tenderness, no fluctuance or erythema Face and sinus: no erythema and no fluctuance Mouth: moist mucous membranes Teeth and gingiva: poor dentition (tooth #9, no palpable abscess) Throat: posterior oropharynx normal Eyes Conjunctivae: normal conjunctivae Sclera: normal sclerae Pupils: PERRL EOM: EOM intact bilaterally Neck Neck: full ROM, no meningeal signs, trachea midline and supple Resp Auscultation: clear to auscultation bilaterally, no rales, no rhonchi and no wheezes Cardio Jugular venous pressure: no JVD Rate: regular rate and not tachycardic Rhythm: regular rhythm GI Palpation: soft, not firm, no guarding, no masses, not rigid and nontender Skin General skin exam: no rashes or lesions noted Neuro General: alert, awake, oriented x3 and tone normal Cranial Nerves: CN's II-XI intact bilaterally Cognition: normal cognition Speech: speech normal Motor: muscle tone normal throughout and strength 5/5 throughout Sensory Exam: no sensory deficits noted Extrem General: no edema Psych Appearance: grossly normal Mental Status: mental status grossly normal Speech and Movement: speech and movement normal Course Vital Signs Temperature 37 C 10/26/18 13:32 Pulse 66 10/26/18 13:32 Respiratory Rate 16 10/26/18 13:32 Blood Pressure 163/68 H 10/26/18 13:32 Pulse Oximetry 99 10/26/18 13:32 Temperature 37 C 10/26/18 13:32 Temperature Source Skin 10/26/18 13:32 Pulse 66 10/26/18 13:32 Respiratory Rate 16 10/26/18 13:32 Respiratory Effort Non-Labored 10/26/18 13:32 Blood Pressure 163/68 H 10/26/18 13:32 Blood Pressure Position Sitting 10/26/18 13:32 Pulse Oximetry 99 10/26/18 13:32 Oxygen Delivery Method Room Air 10/26/18 13:32 Oxygen Flow Rate 0 10/26/18 13:32 Pain Level 10 10/26/18 13:32
[2018-10-26] MEDS: Normal Saline 50 ML 200 ML (15:33)
[2018-10-26 16:37] VITALS: BP 100/53; PULSE 70; RESP 18; TEMP 36.9; O2SAT 99
== END 2018-10-26 16:41 | disposition home or self-care (01) ==
PROVIDERS: Emergency Provider Student in an Organized Health Care Education/Training Program
DX: R51 Headache (principal); K04.7 Periapical abscess without sinus
CPT/HCPCS: 96361; 96374; 96375; 99284; 70450; J0780; J1200; J1885

== ENCOUNTER 2019-09-03 12:59 | Emergency (ER) | payer OTHER, SELFPAY ==
[2019-09-03] VITALS (29 sets, daily range): BP systolic 118–138; BP diastolic 54–87; PULSE 49–66; RESP 16; TEMP 36.5; O2SAT 97–100
--- NOTE | 2019-09-03 13:21 | ED.GENADUL_ITS ---
Discharge Plan Disposition Patient Disposition: HOME Condition: Improving Discharge Details Chief Complaint: Nausea/Vomit/Diar Clinical Impression: Migraine Primary Care Provider: Bhavna Ambrose ED Provider: Matt Saldaña Home Meds and New Rx's Prescriptions: Continued trazodone 50 mg tablet 50 mg PO QHS PRN (Reason: sleep) Qty: 30 RF: 0 sumatriptan succinate 100 mg tablet See Rx Instructions PO .COMPLEX Qty: 10 RF: 6 sertraline 50 mg tablet 50 mg PO DAILY Qty: 30 RF: 0 Discharge Instructions Instructions: Dehydration (ED), Migraine Headache (ED) Additional Instructions: Home to rest today. Small, frequent sips of fluids to maintain hydration Sleep in a dark, quiet room. Resume normal routine and activities tomorrow. Return to the ER for any acute concern. Medical Decision Making 43-year-old female history of migraine headaches. States that she awoke with few episodes of vomiting earlier this morning, was unable to take liquids or her medications. She has developed a migraine headache. She denies diarrhea. No fever. No known suspicious food contacts or recent travel. She is afebrile, interactive with normal blood pressure. No neurologic deficits on exam. IV placed, patient given antiemetic, Toradol, fluids. Patient did improve noting no further residual headache. Taking liquids by mouth. Offered Zofran as needed for home. She stable and improved. Consistent with dehydration and migraine headache. HPI General Mode of arrival: ambulatory . Date/Time Provider Initiated Documentation: 09/03/19 13:03 . Limitations to Documentation: no limitations . Information obtained by: patient . History of Present Illness 43 year old F presents to the emergency department with the chief complaint of Nausea and vomiting, now with migraine headache, described as moderate, Quality is described as dull, and is localized to the abdomen. Patient reports no radiation. Patient started experiencing this hour(s) and it has been intermittent. No relieving factors improve symptom(s), No exacerbating factors reported . Patient notes nausea/vomiting; denies fever/chills. Patient did receive the following treatments prior to arrival, other (Vomited medicine at home) Related Data Home Medications Medication Instructions Recorded Confirmed trazodone 50 mg tablet 50 mg PO QHS PRN #30 tab 04/20/19 09/03/19 sumatriptan succinate 100 mg tablet See Rx Instructions PO .COMPLEX 05/20/19 09/03/19 #10 tab sertraline 50 mg tablet 50 mg PO DAILY #30 tab 08/27/19 09/03/19 Previous Rx's Medication Instructions Recorded trazodone 50 mg tablet 50 mg PO QHS PRN #30 tab 04/20/19 sumatriptan succinate 100 mg tablet See Rx Instructions PO .COMPLEX 05/20/19 #10 tab sertraline 50 mg tablet 50 mg PO DAILY #30 tab 08/27/19 Allergies Allergy/AdvReac Type Severity Reaction Status Date / Time erythromycin base AdvReac Intermediate Skin Rash Verified 09/03/19 13:10 [Erythromycin Base] General Stated Complaint: Nausea/Vomit/Diar OLIVIA: 3 Review of Systems Narrative: 6 systems reviewed and otherwise negative. No difficulty with speech, no gait change, no new motor weakness. [facility] Medical History Anxiety and depression (Acute 08/27/17) Asthma (Chronic) Chronic bilateral low back pain without sciatica (Chronic 02/07/17) History of tobacco use (Resolved 12/10/16) Migraine (Chronic) Obesity (Chronic 12/10/16) Surgical History History of bilateral tubal ligation (Acute) Family History Mother Alcohol abuse Brother Substance abuse Depression Maternal Grandmother Heart disease Son Alcohol abuse Daughter Asthma Daughter Depression Anxiety Maternal Grandfather No problems noted. Social History Smoking/Tobacco Use Status: Former Tobacco Use Quit Date: 11/20/15 Tobacco: How many years used: 10 Alcohol Intake: current Alcohol Intake frequency: holidays/special occasions only Alcohol type: wine Drug use: Daily Substance use type: marijuana Household members: spouse and other Details: daughter & boyfriend/son & Housing: house Communication Needs: None Do you need help understanding health information?: Rarely 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ICE Pets and animals: Yes Pets and animals: cat(s), dog(s), bird(s) and fish Sexually active: Yes Do you think of yourself as: straight/heterosexual Current gender identity: female What is your relationship status?: How often do you talk on the phone with friends or family?: three or more times per week How often do you get together with friends or relatives?: three or more times per week How often do you attend congregational or anabaptist services?: decline to answer Do you belong to any clubs or organized social groups?: no Panel score (0-1 are the most socially isolated patients): 2 What type of physical activity do you participate in: none Angelina/Synagogue: None Special angelina needs: No Seatbelt use: never Helmet use: Yes Helmet use: always Drive intox or ride w/intox taxi driver: No Do you feel safe at home: Yes Do you feel safe in your relationship?: Yes Exam Narrative Exam Narrative: GEN: awake, alert, oriented 3. Pleasant, well groomed, interactive. HEAD: Normocephalic, atraumatic ENT: Mucous membranes dry, oropharynx unremarkable, External ear exam unremarkable EYES: PERRL, EOMI NECK: Full ROM, no SUGEY, no menigismus CHEST/RESP: Nontender, clear to auscultation bilateral, no wheeze/rhonchi/rales CARDIOVASCULAR: RRR, no murmur, rub fariba. 2+ Rad pulse bilateral ABDOMEN: Soft, nontender, no mass. +Bowel sounds EXT: Full ROM, no edema, no rash Neuro: Grossly normal neurologic exam, conversant, interactive. Psych: Speech fluent, thoughts congruent, affect normal Course Vital Signs Vital signs: Vital Signs Temperature 36.5 C 09/03/19 13:04 Pulse 58 L 09/03/19 13:04 Respiratory Rate 16 09/03/19 13:04 Blood Pressure 135/78 09/03/19 13:04 Pulse Oximetry 100 09/03/19 13:04 Temperature 36.5 C 09/03/19 13:04 Temperature Source Skin 09/03/19 13:04 Pulse 58 L 09/03/19 13:04 Respiratory Rate 16 09/03/19 13:04 Respiratory Effort 09/03/19 13:11 Blood Pressure 135/78 09/03/19 13:04 Blood Pressure Position Sitting 09/03/19 13:04 Pulse Oximetry 100 09/03/19 13:04 Oxygen Delivery Method Room Air 09/03/19 13:04 Oxygen Flow Rate 0 09/03/19 13:04 Pain Level 8 09/03/19 13:04 Comment stomach pain from vomiting bile 09/03/19 13:04
[2019-09-03] MEDS: Ketorolac 30 MG/ML VIAL IVP (13:34)
[2019-09-03] MEDS: Ondansetron 4 MG/2 ML VIAL IVP (13:34)
[2019-09-03] MEDS: Normal Saline 1,000 ML 1000 ML IV ×2 (13:35→14:57)
[2019-09-03] MEDS: Ondansetron O.D.T. 4 MG TABEF, 3 TABS/BTL PO (16:33)
== END 2019-09-03 16:35 | disposition home or self-care (01) ==
PROVIDERS: Emergency Provider Emergency Medicine
DX: G43.909 Migraine, unspecified, not intractable, without status migrainosus (principal)
CPT/HCPCS: 96361; 96374; 96375; 99284; J1885; J2405

== ENCOUNTER 2019-12-16 11:45 | Emergency (ER) | payer SELFPAY ==
[2019-12-16 11:51] VITALS: BP 175/80; PULSE 72; RESP 16; TEMP 36.5; O2SAT 99
--- NOTE | 2019-12-16 12:20 | ED.GENADUL_ITS ---
Discharge Plan Disposition Patient Disposition: HOME Condition: Stable Discharge Details Chief Complaint: Nausea/Vomit/Diar Clinical Impression: Nausea & vomiting Primary Care Provider: Bhavna Ambrose ED Provider: Augie Fortune Home Meds and New Rx's Prescriptions: New prochlorperazine maleate [Compazine] 10 mg tablet 10 mg PO Q8H PRN (Reason: nausea and vomiting) Qty: 10 RF: 0 Continued sumatriptan succinate 100 mg tablet See Rx Instructions PO .COMPLEX Qty: 10 RF: 6 Discharge Instructions Instructions: Acute Nausea and Vomiting (ED) Additional Instructions: Compazine as directed. Clear liquid diet, plenty of fluids to avoid dehydration. Advance diet as tolerated to bananas, rice, applesauce, tea, toast. Please watch for new or worsening symptoms and return to the ER for any concerns. Stand Alone Forms: Work Release Medical Decision Making 44-year-old female with a 2-3-day history of nausea, vomiting, diarrhea. No relief with Zofran. Denies fever or any abdominal pain whatsoever. She appears well, nontoxic. She does report that she feels as though she may be dehydrated. Certainly has a nonsurgical abdominal examination. Will obtain routine laboratory values, give IV Compazine as she is already tried Zofran, and give IV fluid. Patient and family comfortable with this plan Work-up in the ER unremarkable. Upon reevaluation she reports significant relief with Compazine and is now able to tolerate p.o. intake without difficulty. We discussed her benign work-up here in the ER and discussed disposition. She is comfortable with disposition, prescription for Compazine, clear liquid diet with ample fluid to avoid dehydration. Encouraged to return to the ER for new or worsening symptoms Medical Records Medical records reviewed: Yes I reviewed the patient's medical records. Lab Data Lab results reviewed: Yes I reviewed the patient's lab results. Lab results narrative: Laboratory Tests Range/Units 12/16/19 12/16/19 12/16/19 12:20 12:20 12:58 WBC (4.4-10.8) k/cumm 9.89 RBC (4.00-5.20) m/cumm 4.38 Hgb (12.0-15.5) g/dL 13.0 Hct (36.0-46.0) % 38.6 MCV (80-95) fL 88.1 MCH (27.0-33.0) pg 29.7 MCHC (32.0-36.0) g/dL 33.7 RDW (11.7-14.6) % 13.8 Plt Count (130-400) x1000/uL 379 MPV (8.0-11.0) fL 9.7 Immature Gran % % 0.2 Neutrophils % 76.4 Lymphocytes % 11.8 Monocytes % 7.5 Eosinophils % 3.7 Basophils % 0.4 Absolute Neutrophils (1.2-6.7) k/cumm 7.55 H Absolute Lymphocytes (1.2-3.4) k/cumm 1.17 L Absolute Monocytes (0.11-0.7) k/cumm 0.74 H Absolute Eosinophils (0.0-0.7) k/cumm 0.37 Absolute Basophils (0.0-0.2) k/cumm 0.04 Sodium (136-145) mmol/L 139 Potassium (3.5-5.1) mmol/L 3.9 Chloride (98-107) mmol/L 106 Carbon Dioxide (21.0-32.0) mmol/L 22.6 Anion Gap (3-11) mmol/L 10.4 BUN (7-18) mg/dL 11 Creatinine (0.55-1.02) mg/dL 0.63 Estimated GFR/1.73 m2 (mL/min/1.73m2) >= 60.00 Glucose (74-106) mg/dL 100 Calcium (8.5-10.1) mg/dL 8.6 Total Bilirubin (0.2-1.0) mg/dL 0.4 AST (15-37) U/L 27 ALT (14-59) U/L 40 Alkaline Phosphatase (46-116) U/L 94 Total Protein (6.4-8.2) g/dL 7.7 Albumin (3.4-5.0) g/dL 3.8 Urine Color (Yellow) Yellow Urine Clarity (Clear) Sl cloudy Urine pH (5-8) 8.5 H Ur Specific [place] (1.005-1.025) 1.020 Urine Protein (Negative) mg/dL Negative Urine Ketones (Negative) mg/dL 40 H Urine Blood (Negative) Negative Urine Nitrite (Negative) Negative Urine Bilirubin (Negative) Negative Urine Urobilinogen (Up TO 0.2) EU/dL 0.2 Ur Leukocyte Esterase (Negative) Negative Urine Glucose (Negative) mg/dL Negative Labs: 40 ketones in urine HPI General Mode of arrival: ambulatory . Date/Time Provider Initiated Documentation: 12/16/19 11:48 . Limitations to Documentation: no limitations . Information obtained by: patient . HPI Narrative: 44-year-old female with a history of migraines, asthma, anxiety and depression, presents to the ER with 2-3-day history of nausea, vomiting, diarrhea. Denies any abdominal pain whatsoever. 2 days ago she did have URI-like symptoms but those have improved. Denies fever. Denies any recent sick contacts, travel, bad food exposure. She did take a Zofran at home with no relief Related Data Home Medications Medication Instructions Recorded Confirmed sumatriptan succinate 100 mg tablet See Rx Instructions PO .COMPLEX 05/20/19 12/16/19 #10 tab prochlorperazine maleate 10 mg PO Q8H PRN #10 tab 12/16/19 [Compazine] Previous Rx's Medication Instructions Recorded sumatriptan succinate 100 mg tablet See Rx Instructions PO .COMPLEX 05/20/19 #10 tab prochlorperazine maleate 10 mg PO Q8H PRN #10 tab 12/16/19 [Compazine] Allergies Allergy/AdvReac Type Severity Reaction Status Date / Time erythromycin base AdvReac Intermediate Skin Rash Verified 12/16/19 11:54 [Erythromycin Base] General Stated Complaint: Nausea/Vomit/Diar OLIVIA: 3 Review of Systems Constitutional Constitutional: Denies chills, Reports fatigue, Denies fever(s), Reports headache(s) and Denies weakness Eyes Eyes: Denies change in vision ENT Ears, Nose, Mouth, and Throat: Reports headache(s) and Denies sore throat Cardiovascular Cardiovascular: Denies chest pain and Denies dyspnea Respiratory Respiratory: Denies dyspnea and Denies wheezing Gastrointestinal Gastrointestinal: Denies abdominal pain, Denies cramping, Reports diarrhea, Reports nausea and Reports vomiting Genitourinary Genitourinary: Denies dysuria Musculoskeletal Musculoskeletal: Denies back pain, Denies myalgias, Denies numbness and Denies tingling Integumentary/Breasts Skin/Breast: Denies rash Neurologic Neurologic: Reports headache(s), Denies numbness, Denies tingling and Denies weakness Endocrine Endocrine: Reports fatigue Allergic/Immunologic Allergic/Immunologic: Denies wheezing [facility] Medical History Anxiety and depression (Acute 08/27/17) Asthma (Chronic) Chronic bilateral low back pain without sciatica (Chronic 02/07/17) History of tobacco use (Resolved 12/10/16) Migraine (Chronic) Obesity (Chronic 12/10/16) Surgical History History of bilateral tubal ligation (Acute) Family History Mother Alcohol abuse Brother Substance abuse Depression Maternal Grandmother Heart disease Son Alcohol abuse Daughter Asthma Daughter Depression Anxiety Maternal Grandfather No problems noted. Social History Smoking/Tobacco Use Status: Former Tobacco Use Quit Date: 11/20/15 Tobacco: How many years used: 10 Alcohol Intake: current Alcohol Intake frequency: holidays/special occasions only Alcohol type: wine Drug use: Daily Substance use type: marijuana Household members: spouse and other Details: daughter & boyfriend/son & Housing: house Communication Needs: None Do you need help understanding health information?: Rarely 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ICE Pets and animals: Yes Pets and animals: cat(s) and dog(s) Sexually active: Yes Do you think of yourself as: straight/heterosexual Current gender identity: female What is your relationship status?: How often do you talk on the phone with friends or family?: three or more times per week How often do you get together with friends or relatives?: three or more times per week How often do you attend gnosticist or roman catholic services?: decline to answer Do you belong to any clubs or organized social groups?: no Panel score (0-1 are the most socially isolated patients): 2 What type of physical activity do you participate in: walking Duration: 15-30 minutes/day Frequency: 3-4 times per week Angelina/Jewish: No preference Special angelina needs: No Seatbelt use: never Helmet use: Yes Helmet use: always Drive intox or ride w/intox hire car driver: No Do you feel safe at home: Yes Do you feel safe in your relationship?: Yes Exam Const General: cooperative, healthy appearing, comfortable and no acute distress Orientation: alert and awake HENMT Head: normal to inspection, normocephalic and atraumatic Mouth: moist mucous membranes Throat: posterior oropharynx normal Eyes Conjunctivae: conjunctivae normal Neck Neck: normal visual inspection, full ROM, no lymphadenopathy, no meningeal signs, trachea midline and supple Resp Effort & Inspection: normal respiratory effort and able to speak in complete sentences Auscultation: clear to auscultation bilaterally Cardio Rate: regular rate Rhythm: regular rhythm GI Inspection: normal to inspection Palpation: soft, not firm, no guarding, not rigid and nontender Auscultation: normal bowel sounds Back/Spine/Pelvis Back: No back tenderness Skin General skin exam: no rashes or lesions noted Neuro General: alert, awake, moves all extremities and no focal motor deficits Motor: muscle tone normal throughout Sensory Exam: no sensory deficits noted Extrem General: normal to inspection Psych Appearance: grossly normal Mental Status: mental status grossly normal Course Vital Signs Vital signs: Vital Signs Temperature 36.5 C 12/16/19 11:51 Pulse 72 12/16/19 11:51 Respiratory Rate 16 12/16/19 11:51 Blood Pressure 175/80 H 12/16/19 11:51 Pulse Oximetry 99 12/16/19 11:51 Temperature 36.5 C 12/16/19 11:51 Temperature Source Skin 12/16/19 11:51 Pulse 72 12/16/19 11:51 Respiratory Rate 16 12/16/19 11:51 Respiratory Effort Non-Labored 12/16/19 11:51 Blood Pressure 175/80 H 12/16/19 11:51 Blood Pressure Position Sitting 12/16/19 11:51 Pulse Oximetry 99 12/16/19 11:51 Oxygen Delivery Method Room Air 12/16/19 11:51 Oxygen Flow Rate 0 12/16/19 11:51 Pain Level 0 12/16/19 11:51
[2019-12-16 12:27] LABS: Abs Immature Grans 0.02 k/cumm (0.0-0.09); Absolute Basophil Count 0.04 k/cumm (0.0-0.2); Absolute Eosinophil Count 0.37 k/cumm (0.0-0.7); Absolute Lymphocyte Count 1.17 k/cumm (1.2-3.4); Absolute Monocyte Count 0.74 k/cumm (0.11-0.7); Absolute Neutrophil Count 7.55 k/cumm (1.2-6.7); Basophils % 0.4; Eosinophils % 3.7; HCT 38.6 % (36.0-46.0); Immature Grans % 0.2 %; Lymphocytes % 11.8; Mean Corp. HGB Concentration 33.7 g/dL (32.0-36.0); Mean Corpuscular Hemoglobin 29.7 pg (27.0-33.0); Mean Corpuscular Volume 88.1 fL (80-95); Mean Platelet Volume 9.7 fL (8.0-11.0); Monocytes % 7.5; Neutrophils % 76.4; Platelet Count 379 x1000/uL (130-400); RBC 4.38 m/cumm (4.00-5.20); RBC Distribution Width 13.8 % (11.7-14.6); White Blood Cell Count 9.89 k/cumm (4.4-10.8)
[2019-12-16 12:39] LABS: ALT 40 U/L (14-59); AST 27 U/L (15-37); Albumin 3.8 g/dL (3.4-5.0); Alkaline Phosphatase 94 U/L (46-116); Anion Gap 10.4 mmol/L (3-11); BUN 11 mg/dL (7-18); Bilirubin, Total 0.4 mg/dL (0.2-1.0); CO2 22.6 mmol/L (21.0-32.0); CREATININE 0.63 mg/dL (0.55-1.02); Calcium 8.6 mg/dL (8.5-10.1); Chloride 106 mmol/L (98-107); Glucose 100 mg/dL (74-106); Potassium 3.9 mmol/L (3.5-5.1); Sodium 139 mmol/L (136-145); Total Protein 7.7 g/dL (6.4-8.2)
[2019-12-16] MEDS: Prochlorperazine 10 MG/2 ML VIAL IVP (12:52)
[2019-12-16 13:04] VITALS: BP 134/63; PULSE 77; RESP 16; TEMP 36.5; O2SAT 99
[2019-12-16 13:07] LABS: Bilirubin Negative (Negative); Blood Negative (Negative); Clarity Sl Cloudy (Clear); Glucose Negative (Negative); Ketones 40 mg/dL (Negative); Leukocyte Esterase Negative (Negative); Nitrite Negative (Negative); Urobilinogen 0.2 EU/dL (Up TO 0.2); pH 8.5 (5-8)
== END 2019-12-16 14:10 | disposition home or self-care (01) ==
PROVIDERS: Emergency Provider Physician Assistant
DX: R11.2 Nausea with vomiting, unspecified (principal); R19.7 Diarrhea, unspecified
CPT/HCPCS: 36415; 80053; 96374; 99284; 81003; 85025; J0780

== ENCOUNTER 2020-03-29 19:42 | Emergency (ER) | payer OTHER, SELFPAY ==
[2020-03-29 19:52] VITALS: BP 152/83; PULSE 81; RESP 16; TEMP 36.6; O2SAT 99
--- NOTE | 2020-03-29 20:17 | ED.GENADUL_ITS ---
Discharge Plan Disposition Patient Disposition: HOME Condition: Good Discharge Details Chief Complaint: AnimalBite Clinical Impression: Dog bite, Cellulitis of hand Primary Care Provider: Bhavna Ambrose ED Provider: Antoine Beebe Home Meds and New Rx's Prescriptions: New amoxicillin-pot clavulanate [Augmentin] 875-125 mg tablet 1 tab PO BID 10 Days Qty: 20 RF: 0 Discharge Instructions Instructions: Animal Bite (ED), Cellulitis (ED) Additional Instructions: At this time you have very early mild cellulitis in the region that was bit by the dog. This has not developed into 1 of the concerning types of cellulitis of the tendons, however please monitor it closely for any worsening redness, swelling, or spreading of the swelling or redness. Please take the antibiotic as directed. In regards to the tingling that you have where you were bit for your thumb, this is likely because a small superficial branch of the nerve was cut. Please rub it gently, and I would recommend taking a [id number] B complex vitamin to help with the nerve healing. If you notice any worsening of your symptoms, or any new symptoms such as vomiting, diarrhea, fever, chills, shortness of breath, chest pain, numbness, weakness, or fainting , please return immediately to the emergency department for reevaluation. Please follow up with your primary care provider as soon as possible for reassessment and reevaluation. As always, it was a pleasure participating in your medical care today. Stand Alone Forms: Work Release Discharge Data Discharge Date/Time-TO BE ENTERED AT DEPARTURE: 03/29/20 20:34 Medical Decision Making Pleasant 44-year-old female presents for evaluation after dog bite. Patient states that days ago she was bit by her own dog, which is vaccinated, while the dog was fighting with another. She was attempting to break up the fight when the dog bit her, it bit her on her left and right hand in a single bite. She has been washing and cleaning the area regularly. She has been applying triple antibiotic ointment. Over the last 24 hours she has noticed mild redness on left nondominant hand with mild pain over the knuckle of the middle finger. She denies any streaking redness, fever, chills, headache. Her tetanus was updated in 2018. She also admits to a mild area of tingling on her thumb which is where 1 of the bite blackman were. No other complaints at this time. No other modifying factors. Full exam demonstrates 3 small tooth/white lesions on the left nondominant hand, over the thenar eminence, proximal phalanx of the thumb on the dorsal aspect, as well as by the MCP joint of the ring finger. No evidence of any clinical signs of flexor or extensor tenosynovitis. This certainly is mild irritation, minimal erythema over the soft tissues just proximal to the MCP joint of the ring finger on the left. However there is no significant spreading redness, or clinical evidence of septic joint, or significant flexor or extensor tenosynovitis at this time. No sausage shaped digit, resting flexion, or severe pain on passive extension of the ring finger on the left hand. There is a small area of subjective tingling and numbness at the lesion on the thumb, however the patient demonstrates good movement strength, and excellent two-point discrimination at distal to this lesion. Suspect that there is small damage to the superficial component of the cutaneous nerves of the thenar area. With no signs of musculoskeletal weakness and good two-point discrimination at the tip and the remainder of the thumb, do not see any indication for surgical management. At this time with no evidence of flexor extensor tenosynovitis, no signs of significant cellulitis, there is no indication for admission or IV antibiotics. The patient's tetanus is up-to-date, the dogs vaccines are certainly up-to-date as well per patient, including rabies vaccine. Patient would like to hold off on imaging, and at this time I see no clinical indication for imaging. Patient will be started on Augmentin, first dose will be given here, as well as 1 pill to go home with in addition to a prescription. I had a long discussion with the patient regarding red flags which to return, including the importance of close observation, as well as wound recheck if the symptoms are not improving or show any signs of worsening. I have extensively reviewed the treatment plan and discharge instructions with the patient. I have addressed all patient concerns at this time. The patient was made aware of what symptoms to monitor for that would warrant a return to the emergency department. Discussed the plan with the patient, they demonstrate verbal understanding and agreement with our assessment and plan at this time. HPI General Date/Time Provider Initiated Documentation: 03/29/20 19:44 . HPI Narrative: Pleasant 44-year-old female presents for evaluation after dog bite. Patient states that days ago she was bit by her own dog, which is vaccinated, while the dog was fighting with another. She was attempting to break up the fight when the dog bit her, it bit her on her left and right hand in a single bite. She has been washing and cleaning the area regularly. She has been applying triple antibiotic ointment. Over the last 24 hours she has noticed mild redness on left nondominant hand with mild pain over the knuckle of the middle finger. She denies any streaking redness, fever, chills, headache. Her tetanus was updated in 2018. She also admits to a mild area of tingling on her thumb which is where 1 of the bite blackman were. No other complaints at this time. No other modifying factors Related Data Home Medications Medication Instructions Recorded Confirmed amoxicillin-pot clavulanate 1 tab PO BID 10 Days #20 tab 03/29/20 [Augmentin] Previous Rx's Medication Instructions Recorded amoxicillin-pot clavulanate 1 tab PO BID 10 Days #20 tab 03/29/20 [Augmentin] Allergies Allergy/AdvReac Type Severity Reaction Status Date / Time erythromycin base AdvReac Intermediate Skin Rash Verified 03/29/20 19:53 [Erythromycin Base] General Stated Complaint: AnimalBite OLIVIA: 4 Review of Systems All systems reviewed & are unremarkable except as noted in HPI and below PFSH Medical History Anxiety and depression (Acute 08/27/17) Asthma (Chronic) Chronic bilateral low back pain without sciatica (Chronic 02/07/17) History of tobacco use (Resolved 12/10/16) Migraine (Chronic) Obesity (Chronic 12/10/16) Surgical History History of bilateral tubal ligation (Acute) Family History Mother Alcohol abuse Brother Substance abuse Depression Maternal Grandmother Heart disease Son Alcohol abuse Daughter Asthma Daughter Depression Anxiety Maternal Grandfather No problems noted. Social History Smoking/Tobacco Use Status: Former Tobacco Use Quit Date: 11/20/15 Tobacco: How many years used: 10 Alcohol Intake: current Alcohol Intake frequency: holidays/special occasions only Alcohol type: wine Drug use: Daily Substance use type: marijuana Household members: spouse and other Details: daughter & boyfriend/son & Housing: house Communication Needs: None Do you need help understanding health information?: Rarely 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ICE Pets and animals: Yes Pets and animals: cat(s) and dog(s) Sexually active: Yes Do you think of yourself as: straight/heterosexual Current gender identity: female What is your relationship status?: How often do you talk on the phone with friends or family?: three or more times per week How often do you get together with friends or relatives?: three or more times per week How often do you attend mormon or presybeterian services?: decline to answer Do you belong to any clubs or organized social groups?: no Panel score (0-1 are the most socially isolated patients): 2 What type of physical activity do you participate in: walking Duration: 15-30 minutes/day Frequency: 3-4 times per week Angelina/Worship: No preference Special angelina needs: No Seatbelt use: never Helmet use: Yes Helmet use: always Drive intox or ride w/intox coach driver: No Do you feel safe at home: Yes Do you feel safe in your relationship?: Yes Exam Narrative Exam Narrative: 1.Const: Well-nourished, Well-developed, appearing stated age 2.Eyes: PERRL, no conjunctival injection, and symmetrical lids. 3.ENT: Atraumatic external nose and ears. Moist MM. Neck: Symmetric, trachea midline, No thyromegaly. 4.CVS: +S1/S2, No murmurs or gallops. Peripheral pulses 2+ and equal in all extremities. Brisk capillary refill in all extremities. 5.RESP: Unlabored respiratory effort. Clear to auscultation bilaterally. No wheezes rales or rhonchi 6.GI: Soft, Nontender/Nondistended, No hepatosplenomegaly. No guarding or rebound. 7.MSK: Right hand: Symmetrically palpable radial and ulnar pulses. Capillary refill less than 2 seconds to all digits. Intact sensation to light touch of the radial, median and ulnar nerves demonstrated by testing in the dorsal web space of the thumb, the distal palmar aspect of the index finger, and the lateral surface of the fifth finger. 2 point discrimination intact to 5mm (up to 6mm can be normal in digits 3-5) of discrimination in the affected digit of the right ring finger. Intact motor function of the radial, median and ulnar nerves de monstrated by strength of extension of the isolated distal joint of the index finger, hand prescription clerk, and spreading of the 2nd through 5th digits. Intact recurrent median nerve as demonstrated by ability to move thumb fully through opposition, abduction and flexion. No snuffbox tenderness. There is a small abrasion/well- healing punctate wound over the dorsal aspect of the right ring finger, no evidence of significant redness, cellulitis, or swelling. No pain with passive or active flexion or extension, no clinical evidence of flexor or extensor tenosynovitis. Left hand: Intact sensation to light touch of the radial, median and ulnar nerves demonstrated by testing in the dorsal web space of the thumb, the distal palmar aspect of the index finger, and the lateral surface of the fifth finger. The patient does have slight decrease in sensation in an area roughly 5 mm x 5 mm just distal to the small bite wound on the dorsal aspect of the thumb, the decrease in sensation is located between the MCP joint and the interphalangeal joint. Distal to this demonstrates normal sensation, with normal two-point discrimination. 2 point discrimination intact to 5mm (up to 6mm can be normal in digits 3-5) of discrimination in the affected digit as well as the digits of all the other fingers on the left hand. Intact motor function of the radial, median and ulnar nerves demonstrated by strength of extension of the isolated distal joint of the index finger, hand prescription clerk, and spreading of the 2nd through 5th digits. Intact recurrent median nerve as demonstrated by ability to move thumb fully through opposition, abduction and flexion. No snuffbox tenderness. Patient does demonstrate evidence of a small bite wound noted over the dorsal aspect of the thumb, over the area of the ring finger MCP joint, as well as the thenar eminence on the dorsal aspect. Minimal redness is only present around the lesion by the ring finger MCP joint. Minimal pain on the dorsal aspect with passive flexion of the ring finger and active extension. No pain on the volar aspect or with active or passive flexion or extension. No evidence of significant flexor tenosynovitis or significant extensor tenosynovitis. No sausage shaped digit. No purulence, or significant warmth. 8.Skin: Warm, Dry. Please see musculoskeletal 9.Neuro: source water protection specialist II-XII grossly intact. Sensation grossly intact, no focal neurologic deficits. 10.Psych: (AAO) x3. Appropriate mood and affect Course Vital Signs Vital signs: Vital Signs Temperature 36.6 C 03/29/20 19:52 Pulse 81 03/29/20 19:52 Respiratory Rate 16 03/29/20 19:52 Blood Pressure 152/83 H 03/29/20 19:52 Pulse Oximetry 99 03/29/20 19:52 Temperature 36.6 C 03/29/20 19:52 Temperature Source Skin 03/29/20 19:52 Pulse 81 03/29/20 19:52 Respiratory Rate 16 03/29/20 19:52 Respiratory Effort Non-Labored 03/29/20 19:54 Blood Pressure 152/83 H 03/29/20 19:52 Blood Pressure Position Sitting 03/29/20 19:52 Pulse Oximetry 99 03/29/20 19:52 Oxygen Delivery Method Room Air 03/29/20 19:52 Oxygen Flow Rate 0 03/29/20 19:52 Pain Level 7 03/29/20 19:52
[2020-03-29] MEDS: Amox. 875/Clav. 125, 2 TABS/BTL 1 TAB PO (20:30)
== END 2020-03-29 20:34 | disposition home or self-care (01) ==
PROVIDERS: Emergency Provider Student in an Organized Health Care Education/Training Program
DX: S61.452A Open bite of left hand, initial encounter (principal); L03.114 Cellulitis of left upper limb; W54.0XXA Bitten by dog, initial encounter; R20.2 Paresthesia of skin; S61.254A Open bite of right ring finger without damage to nail, initial encounter
CPT/HCPCS: 99283

== ENCOUNTER 2020-06-08 11:41 | Emergency (ER) | payer OTHER, SELFPAY ==
[2020-06-08 11:44] VITALS: BP 146/83; PULSE 61; RESP 18; TEMP 36; O2SAT 99
--- NOTE | 2020-06-08 11:52 | ED.GENADUL_ITS ---
Discharge Plan Disposition Patient Disposition: HOME Condition: Improving Discharge Details Chief Complaint: Headache Clinical Impression: Migraine Primary Care Provider: Bhavna Ambrose ED Provider: Jocelyn Leonardo Home Meds and New Rx's Prescriptions: Continued sumatriptan succinate 100 mg tablet 100 mg PO PRN PRNRF: 0 Discharge Instructions Instructions: Migraine Headache (ED) Additional Instructions: Drink plenty of fluids and get plenty of rest. Alternate tylenol and motrin as needed and directed for pain. Follow-up with your primary care doctor in 1 week. Return to the emergency department with any worsening or new concerning symptoms. Stand Alone Forms: Work Release Discharge Data Discharge Date/Time-TO BE ENTERED AT DEPARTURE: 06/08/20 13:45 Discharge Physician: Jocelyn Leonardo Medical Decision Making 1155 -- 44-year-old female with a history of migraines, anxiety, depression and obesity presents with frontal burning headache and vomiting since last night consistent with her usual migraine. Vitals within normal limits. She appears uncomfortable but nontoxic. No focal deficits. As this is consistent with her usual migraine, do not see indication for labs or imaging at this time patient is agreeable with this plan. Will place an IV, bolus IV fluids, Compazine, Benadryl, Decadron and Toradol IV and will reassess. She has a history of tubal ligation and declined test. 1300 --patient told nurse that she feels much better and is requesting to leave. Patient reassessed and she appears much more comfortable. She was able to ambulate and appeared in no acute distress. Advised to follow up with the primary care doctor for re-evaluation. Usual and customary return precautions given prior to discharge. HPI General Mode of arrival: ambulatory . Date/Time Provider Initiated Documentation: 06/08/20 11:51 . Limitations to Documentation: no limitations . Information obtained by: patient . HPI Narrative: Patient is a 44-year-old female with a history of migraines, anxiety, depression and obesity who presents with migraine headache since last night. She states the headache is burning, frontal and appears consistent with her usual migraine. She has vomited a few times this morning which is mainly food or bile. She took 2 doses of sumatriptan today without relief. She also admits to sensitivity to light. She denies any fever, dizziness, neck pain, recent illness, recent travel or known sick contacts. Related Data Home Medications Medication Instructions Recorded Confirmed sumatriptan succinate 100 mg PO PRN PRN 06/08/20 06/08/20 Allergies Allergy/AdvReac Type Severity Reaction Status Date / Time erythromycin base AdvReac Intermediate Skin Rash Verified 06/08/20 11:49 [Erythromycin Base] General Stated Complaint: Headache OLIVIA: 3 Review of Systems All systems reviewed & are unremarkable except as noted in HPI and below Constitutional Constitutional: Reports as per HPI, Denies chills, Denies fever(s) and Reports headache(s) Eyes Eyes: Denies blurry vision ENT Ears, Nose, Mouth, and Throat: Denies dizziness, Reports headache(s), Denies sore throat and Denies throat swelling Cardiovascular Cardiovascular: Denies chest pain and Denies dyspnea Respiratory Respiratory: Denies cough and Denies dyspnea Gastrointestinal Gastrointestinal: Denies abdominal pain, Denies diarrhea, Reports nausea and Reports vomiting Genitourinary Genitourinary: Denies hematuria and Denies dysuria Musculoskeletal Musculoskeletal: Denies back pain and Denies numbness Integumentary/Breasts Skin/Breast: Denies lesions and Denies rash Neurologic Neurologic: Denies dizziness, Reports headache(s), Denies localized weakness and Denies numbness Allergic/Immunologic Allergic/Immunologic: Denies throat swelling [facility] Medical History (Updated 06/08/20 @ 13:36 by Jocelyn Leonardo DO) Anxiety and depression (Acute 08/27/17) Asthma (Chronic) Chronic bilateral low back pain without sciatica (Chronic 02/07/17) History of tobacco use (Resolved 12/10/16) Migraine (Chronic) Obesity (Chronic 12/10/16) Surgical History History of bilateral tubal ligation (Acute) Family History Mother Alcohol abuse Brother Substance abuse Depression Maternal Grandmother Heart disease Son Alcohol abuse Daughter Asthma Daughter Depression Anxiety Maternal Grandfather No problems noted. Social History Smoking/Tobacco Use Status: Former Tobacco Use Quit Date: 11/20/15 Tobacco: How many years used: 10 Alcohol Intake: current Alcohol Intake frequency: holidays/special occasions only Alcohol type: wine Drug use: Daily Substance use type: marijuana Household members: spouse and other Details: daughter & boyfriend/son & Housing: house Communication Needs: None Do you need help understanding health information?: Rarely 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ICE Pets and animals: Yes Pets and animals: cat(s) and dog(s) Sexually active: Yes Do you think of yourself as: straight/heterosexual Current gender identity: female What is your relationship status?: How often do you talk on the phone with friends or family?: three or more times per week How often do you get together with friends or relatives?: three or more times per week How often do you attend zoroastrian or protestant services?: decline to answer Do you belong to any clubs or organized social groups?: no Panel score (0-1 are the most socially isolated patients): 2 What type of physical activity do you participate in: walking Duration: 15-30 minutes/day Frequency: 3-4 times per week Angelina/Faith: No preference Special angelina needs: No Seatbelt use: never Helmet use: Yes Helmet use: always Drive intox or ride w/intox hazardous materials tanker driver: No Do you feel safe at home: Yes Do you feel safe in your relationship?: Yes Exam Const General: cooperative, healthy appearing and no acute distress HENMT Head: normal to inspection Ears: hearing grossly normal bilaterally, external ears normal and TM's normal bilaterally General nose exam: external nose normal Face and sinus: normal facial exam Mouth: oral mucosae normal Eyes General: appearance normal, both eyes and all related structures Pupils: PERRL EOM: EOM intact bilaterally Neck Neck: normal visual inspection and No submandibular swelling Lymphatic: no lymphadenopathy noted Chest Chest: normal inspection of the chest and no tenderness Resp Effort & Inspection: normal respiratory effort and able to speak in complete sentences Auscultation: clear to auscultation bilaterally Cardio Rate: regular rate Rhythm: regular rhythm GI Inspection: normal to inspection Palpation: soft, not firm, not rigid and nontender Auscultation: normal bowel sounds Back/Spine/Pelvis Thoracic/Lumbar Spine: thoracic and lumbar spine normal to inspection Pelvis: no pain with anterior-posterior compression Skin General skin exam: no rashes or lesions noted Neuro General: patient alert, patient awake and patient oriented x3 Cranial Nerves: CN's II-XI intact bilaterally Cognition: normal cognition Speech: speech normal Motor: muscle tone normal throughout and strength 5/5 throughout Sensory Exam: no sensory deficits noted Extrem General: normal to inspection, full ROM, capillary refill normal, no calf tenderness bilaterally and no edema Psych Appearance: grossly normal Mental Status: mental status grossly normal Speech and Movement: speech and movement normal Affect: normal affect Course Vital Signs Vital signs: Vital Signs Temperature 96.8 F L 06/08/20 11:44 Pulse 61 06/08/20 11:44 Respiratory Rate 18 06/08/20 11:44 Blood Pressure 146/83 H 06/08/20 11:44 Pulse Oximetry 99 06/08/20 11:44 Temperature 96.8 F L 06/08/20 11:44 Temperature Source Skin 06/08/20 11:44 Pulse 61 06/08/20 11:44 Respiratory Rate 18 06/08/20 11:44 Respiratory Effort 06/08/20 11:50 Blood Pressure 146/83 H 06/08/20 11:44 Blood Pressure Position Supine 06/08/20 11:44 Pulse Oximetry 99 06/08/20 11:44 Oxygen Delivery Method Room Air 06/08/20 11:44 Oxygen Flow Rate 0 06/08/20 11:44 Pain Level 10 06/08/20 11:44
[2020-06-08] MEDS: Normal Saline 1,000 ML 1000 ML IV (12:20)
[2020-06-08] MEDS: Ketorolac 30 MG/ML VIAL IVP (12:22)
[2020-06-08] MEDS: diphenhydrAMINE 50 MG/ML VIAL 25 MG IVP (12:24)
[2020-06-08] MEDS: Dexamethasone 10 MG/ML VIAL IVP (12:27)
[2020-06-08] MEDS: Normal Saline 50 ML (12:29)
[2020-06-08] MEDS: Prochlorperazine 10 MG/2 ML VIAL IVP (12:30)
--- NOTE | 2020-06-08 12:47 | NUR.NOTE ---
states she had tubal and is currently having period, declined urine preg test, Dr Leonardo notified
[2020-06-08 13:11] VITALS: BP 125/61; PULSE 83; RESP 16; O2SAT 100
== END 2020-06-08 13:45 | disposition home or self-care (01) ==
PROVIDERS: Emergency Provider Physician Assistant
DX: G43.809 Other migraine, not intractable, without status migrainosus (principal); R11.2 Nausea with vomiting, unspecified
CPT/HCPCS: 96361; 96374; 96375; 99284; J0780; J1100; J1200; J1885

== ENCOUNTER 2020-09-13 00:35 | Outpatient (CLI) | payer OTHER, SELFPAY | END 2020-09-13 00:55 | DX: R69 Illness, unspecified (principal) ==

== ENCOUNTER 2021-01-06 19:25 | Emergency (ER) | payer SELFPAY ==
[2021-01-06] VITALS (15 sets, daily range): BP systolic 121–149; BP diastolic 59–81; PULSE 54–76; RESP 16; TEMP 36.3; O2SAT 97–100
--- NOTE | 2021-01-06 19:35 | ED.GENADUL_ITS ---
Discharge Plan Disposition Patient Disposition: HOME Condition: Improving Discharge Details Clinical Impression: Migraine Primary Care Provider: Bhavna Ambrose ED Provider: Mir Helms Home Meds and New Rx's Prescriptions: Continued sumatriptan succinate 100 mg tablet 100 mg PO PRN MDD 2 tabs (200mg) Qty: 10 RF: 6 Discharge Instructions Additional Instructions: Home and get some sleep tonight. Hydrate well tomorrow. Follow-up with primary care as needed. Return to the ED for new or worsening headache, neurologic changes, persistent vomiting. Referrals: Bhavna Ambrose, [facility] [employer] [facility] [Primary Care Provider] - Medical Decision Making <Matt Saldaña MD - Last Filed: 01/06/21 19:38> 45-year-old female migraine her presents with onset of headache this morning, similar to previous, associated with her current unremarkable menstrual period. She has not had a fever, stiff neck, nor fall or injury. She arrives to the ER afebrile, interactive, with unremarkable neurologic examination. Most consistent with migraine type cephalgia. IV access established, fluids initiated, patient given parenteral medications with ketorolac, dexamethasone, ondansetron. As it is change of shift, will sign the patient out to Dr. Helms pending reevaluation. Please see his note regarding details of final impression and plan. <Mir Helms MD - Last Filed: 01/06/21 21:00> Patient presents with typical migraine headache that did not respond to Imitrex at home. Please see Dr. Saldaña's note for initial evaluation and exam. Patient was given fluids, dexamethasone, ketorolac, ondansetron. Headache improved some but not resolved with those medications. Nausea did resolve. Patient given prochlorperazine with subsequent minimal headache at time of discharge. Patient to follow-up with primary care as needed. Return to ED for new or worsening headache, neurologic changes, persistent vomiting, other concerns. HPI <Matt Saldaña MD - Last Filed: 01/06/21 19:38> General Mode of arrival: ambulatory . Date/Time Provider Initiated Documentation: 01/06/21 19:26 . Limitations to Documentation: no limitations . Information obtained by: patient . History of Present Illness 45 year old F presents to the emergency department with the chief complaint of Headache, similar to previous, described as severe, Quality is described as dull and constant, and is localized to the head. Patient reports no radiation. Patient started experiencing this hour(s) and it has been constant. No relieving factors improve symptom(s), Patient notes loss of appetite and nausea/vomiting; denies fever/chills and syncope. Patient did receive the following treatments prior to arrival, other (Imitrex x2) Related Data Home Medications Medication Instructions Recorded Confirmed sumatriptan succinate 100 mg tablet 100 mg PO PRN #10 tab MDD 2 tabs 07/04/20 01/06/21 (200mg) Previous Rx's Medication Instructions Recorded sumatriptan succinate 100 mg tablet 100 mg PO PRN #10 tab MDD 2 tabs 07/04/20 (200mg) Allergies Allergy/AdvReac Type Severity Reaction Status Date / Time erythromycin base AdvReac Intermediate Skin Rash Verified 01/06/21 19:30 [Erythromycin Base] General Stated Complaint: Headache OLIVIA: 3 Review of Systems <Matt Saldaña MD - Last Filed: 01/06/21 19:38> Narrative: 6 systems reviewed and otherwise negative. No recent illness. No fall. No neck stiffness or fever. PFSH <Matt Saldaña MD - Last Filed: 01/06/21 19:38> Medical History Anxiety and depression (08/27/17) Asthma Chronic bilateral low back pain without sciatica (02/07/17) Encounter for annual physical exam History of tobacco use (12/10/16) Increased body mass index (BMI) Migraine Surgical History History of bilateral tubal ligation Family History Mother Alcohol abuse Brother Substance abuse Depression Maternal Grandmother Heart disease Son Alcohol abuse Daughter Asthma Daughter Depression Anxiety Maternal Grandfather No problems noted. Social History Smoking/Tobacco Use Status: Former Tobacco Use Quit Date: 11/20/15 Tobacco: How many years used: 10 Smoking risk assessment performed?: Yes Alcohol Intake: current Alcohol Intake frequency: holidays/special occasions only Alcohol type: wine Drug use: Daily Substance use type: marijuana Counseling given: No Counseling provided: none Caregiver/Support person: No Household members: spouse, children and other Details: daughter & boyfriend/son & Housing: house Communication Needs: None Do you need help understanding health information?: Rarely 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ICE Pets and animals: Yes Pets and animals: cat(s) and dog(s) Sexually active: Yes Do you think of yourself as: straight/heterosexual Current gender identity: female What is your relationship status?: How often do you talk on the phone with friends or family?: three or more times per week How often do you get together with friends or relatives?: three or more times per week How often do you attend mu-ism or spiritism services?: decline to answer Do you belong to any clubs or organized social groups?: no Panel score (0-1 are the most socially isolated patients): 2 What type of physical activity do you participate in: walking Duration: 30-45 minutes/day Frequency: 3-4 times per week Angelina/Rastafari: No preference Special angelina needs: No Seatbelt use: never Helmet use: Yes Helmet use: always Drive intox or ride w/intox driver helper: No Do you feel safe at home: Yes Do you feel safe in your relationship?: Yes Exam <Matt Saldaña MD - Last Filed: 01/06/21 19:38> Narrative Exam Narrative: GEN: awake, alert, oriented 3. Pleasant, well groomed, interactive. HEAD: Normocephalic, atraumatic ENT: Mucous membranes moist, oropharynx unremarkable, External ear exam unremarkable EYES: PERRL, EOMI NECK: Full ROM, no SUGEY, no menigismus CHEST/RESP: Nontender, clear to auscultation bilateral, no wheeze/rhonchi/rales CARDIOVASCULAR: RRR, no murmur, rub fariba. 2+ Rad pulse bilateral ABDOMEN: Soft, nontender, no mass. +Bowel sounds EXT: Full ROM, no edema, no rash Neuro: Grossly normal neurologic exam, conversant, interactive. Psych: Speech fluent, thoughts congruent, affect normal Course <Matt Saldaña MD - Last Filed: 01/06/21 19:38> Vital Signs Vital signs: Vital Signs Temperature 36.3 C L 01/06/21 19:28 Pulse 76 01/06/21 19:28 Respiratory Rate 16 01/06/21 19:28 Pulse Oximetry 99 01/06/21 19:28 Temperature 36.3 C L 01/06/21 19:28 Temperature Source Skin 01/06/21 19:28 Pulse 76 01/06/21 19:28 Respiratory Rate 16 01/06/21 19:28 Respiratory Effort 01/06/21 19:31 Blood Pressure Position Supine 01/06/21 19:28 Pulse Oximetry 99 01/06/21 19:28 Oxygen Delivery Method Room Air 01/06/21 19:28 Oxygen Flow Rate 0 01/06/21 19:28 Pain Level 7 01/06/21 19:31 Sign Out <Matt Saldaña MD - Last Filed: 01/06/21 19:38> Sign Out Data: Sign Out Comment: Followup/recheck after medications Last updated by Matt Saldaña MD at 01/06/21 19:44
[2021-01-06] MEDS: Ondansetron 4 MG/2 ML VIAL IVP (19:42)
[2021-01-06] MEDS: Dexamethasone 10 MG/ML VIAL IVP (19:42)
[2021-01-06] MEDS: Normal Saline 1,000 ML 1000 ML IV (19:42)
[2021-01-06] MEDS: Ketorolac 30 MG/ML VIAL IVP (19:42)
[2021-01-06] MEDS: Prochlorperazine 10 MG/2 ML VIAL IVP (20:35)
== END 2021-01-06 21:15 | disposition home or self-care (01) ==
PROVIDERS: Emergency Provider Emergency Medicine
DX: G43.809 Other migraine, not intractable, without status migrainosus (principal)
CPT/HCPCS: 96361; 96374; 96375; 99284; 99283; J0780; J1100; J1885; J2405

== ENCOUNTER 2022-01-23 10:04 | Emergency (ER) | payer SELFPAY ==
[2022-01-23 10:06] VITALS: BP 189/75; PULSE 58; RESP 14; TEMP 36.6; O2SAT 99
--- NOTE | 2022-01-23 10:21 | W.ED.GENAD ---
Discharge Plan Disposition Patient Disposition: HOME Discharge Details Clinical Impression: Migraine Primary Care Provider: Bhavna Ambrose ED Provider: Jessica Martinez Home Meds and New Rx's Prescriptions: New prochlorperazine maleate [Compazine] 10 mg tablet 10 mg PO Q6H PRNQty: 10 0RF Continued sumatriptan succinate 100 mg tablet 50 mg PO PRN MDD 2 tabs (200mg) 0RF Rx Instructions: 1 tab at onset of headache; if no relief may repeat 1 tab in 2 hrs ondansetron 4 mg Tablet,Disintegrating 4 mg PO DIRECTED 0RF Discharge Instructions Instructions: General Headache (ED) Additional Instructions: You may take Compazine as needed for headache and vomiting Ibuprofen and Tylenol as needed for discomfort Follow-up with your PCP Return earlier should you have new or worsening complaints Medical Decision Making Patient has improved blood pressure She has marked improvement after typical migraine cocktail and request discharge home at this time She is able to tolerate p.o. Given Compazine for home Encouraged to follow-up with PCP and return earlier should she have new or complaints Medical Records Medical records reviewed: Yes I reviewed the patient's medical records. Lab Data Lab results reviewed: Yes I reviewed the patient's lab results. HPI General Date/Time Provider Initiated Documentation: 01/23/22 10:08. HPI Narrative: This 46-year-old female presents with reports of typical migraine headache that started this morning. Patient took her Imitrex without relief in symptoms. She is experiencing photophobia and phonophobia. She denies any associated fever or neck pain. She denies any risk of carbon monoxide exposure. She denies any strength or sensation change or any additional complaints at this time. Related Data Home Medications Medication Instructions Recorded Confirmed ondansetron 4 mg disintegrating 4 mg PO DIRECTED 01/23/22 01/23/22 tablet prochlorperazine maleate 10 mg 10 mg PO Q6H PRN #10 tab 01/23/22 tablet (Compazine) sumatriptan succinate 100 mg tablet 50 mg PO PRN MDD 2 tabs (200mg) 01/23/22 01/23/22 Previous Rx's Medication Instructions Recorded prochlorperazine maleate 10 mg 10 mg PO Q6H PRN #10 tab 01/23/22 tablet (Compazine) Allergies Allergy/AdvReac Type Severity Reaction Status Date / Time erythromycin base AdvReac Intermediate Skin Rash Verified 01/23/22 10:12 [Erythromycin Base] General Stated Complaint: Headache OLIVIA: 3 Review of Systems All systems reviewed & are unremarkable except as noted in HPI and below PFSH All Active Problems (Updated 01/23/22 @ 11:17 by SAMIR Mueller) Migraine (Chronic) Increased body mass index (BMI) (Acute) Encounter for annual physical exam (Acute) Nausea & vomiting (Acute) Insomnia disorder, with non-sleep disorder mental comorbidity, episodic (Acute) Migraine (Chronic) Chronic bilateral low back pain without sciatica (Chronic 02/07/17) Asthma (Chronic) Anxiety and depression (Acute 08/27/17) Medical History Anxiety and depression (08/27/17) Asthma Chronic bilateral low back pain without sciatica (02/07/17) Encounter for annual physical exam History of tobacco use (12/10/16) Increased body mass index (BMI) Migraine Surgical History History of bilateral tubal ligation Family History Mother Alcohol abuse Brother Substance abuse Depression Maternal Grandmother Heart disease Son Alcohol abuse Daughter Asthma Daughter Depression Anxiety Maternal Grandfather No problems noted. Social History Smoking/Tobacco Use Status: Former Tobacco Use Quit Date: 11/20/15 Tobacco: How many years used: 10 Smoking risk assessment performed?: Yes Alcohol Intake: former Drug use: Daily Substance use type: marijuana Counseling given: No Counseling provided: none Caregiver/Support person: No Household members: spouse, children and other Details: daughter & boyfriend/son & Housing: house Communication Needs: None Do you need help understanding health information?: Rarely 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ICE Pets and animals: Yes Pets and animals: cat(s) and dog(s) Sexually active: Yes Do you think of yourself as: straight/heterosexual Current gender identity: female What is your relationship status?: How often do you talk on the phone with friends or family?: three or more times per week How often do you get together with friends or relatives?: three or more times per week How often do you attend gnosticist or restorationist services?: decline to answer Do you belong to any clubs or organized social groups?: no Panel score (0-1 are the most socially isolated patients): 2 What type of physical activity do you participate in: walking Duration: 30-45 minutes/day Frequency: 3-4 times per week Angelina/Jehovah'S Witness: No preference Special angelina needs: No Seatbelt use: never Helmet use: Yes Helmet use: always Drive intox or ride w/intox lifter driver: No Do you feel safe at home: Yes Do you feel safe in your relationship?: Yes Exam Const General: cooperative, no acute distress and well developed HENMT Head: normal to inspection Eyes Pupils: PERRL EOM: EOM intact bilaterally Neck Other: No carotid bruit, no meningismus Resp Effort & Inspection: normal respiratory effort Auscultation: clear to auscultation bilaterally Cardio Rate: regular rate Rhythm: regular rhythm Skin General skin exam: no rashes or lesions noted Neuro General: patient alert and patient oriented x3 Cranial Nerves: CN's II-XI intact bilaterally and tongue midline Cognition: normal cognition Gait: normal gait Course Vital Signs Vital signs: Vital Signs Temperature 36.6 C 01/23/22 10:06 Pulse 58 L 01/23/22 10:06 Respiratory Rate 14 01/23/22 10:06 Blood Pressure 189/75 H 01/23/22 10:06 Pulse Oximetry 99 01/23/22 10:06 Temperature 36.6 C 01/23/22 10:06 Temperature Source Skin 01/23/22 10:06 Pulse 58 L 01/23/22 10:06 Respiratory Rate 14 01/23/22 10:06 Respiratory Effort 01/23/22 10:13 Blood Pressure 189/75 H 01/23/22 10:06 Blood Pressure Position Sitting 01/23/22 10:06 Pulse Oximetry 99 01/23/22 10:06 Oxygen Delivery Method Room Air 01/23/22 10:06 Oxygen Flow Rate 0 01/23/22 10:06 Pain Level 8 01/23/22 10:06 Comment 01/23/22 10:06
[2022-01-23] MEDS: Normal Saline 1,000 ML 1000 ML IV (10:31)
[2022-01-23] MEDS: diphenhydrAMINE 50 MG/ML VIAL 25 MG IVP (10:32)
[2022-01-23] MEDS: Prochlorperazine 10 MG/2 ML VIAL IVP (10:32)
[2022-01-23] MEDS: Ketorolac 15 MG/ML VIAL IVP (10:32)
[2022-01-23] MEDS: Normal Saline 50 ML 100 ML (10:52)
[2022-01-23 11:21] VITALS: BP 132/70; PULSE 66; RESP 16; O2SAT 100
== END 2022-01-23 11:28 | disposition home or self-care (01) ==
PROVIDERS: Emergency Provider Physician Assistant
DX: G43.909 Migraine, unspecified, not intractable, without status migrainosus (principal)
CPT/HCPCS: 36415; 80048; 96361; 96374; 96375; 99284; 85025; 99283; J0780; J1200; J1885

== ENCOUNTER 2023-09-10 17:23 | Emergency (ER) | payer SELFPAY ==
[2023-09-10] VITALS (18 sets, daily range): BP systolic 148–202; BP diastolic 72–114; PULSE 56–88; RESP 12–23; TEMP 36.1–36.8; O2SAT 97–100
--- NOTE | 2023-09-10 17:45 | DI.CT_ITS ---
Exam(s) CT HEAD WO EXAM: CT HEAD WO CLINICAL HISTORY: headache, severe HTN. TECHNIQUE: Imaging Protocol: Axial computed tomography images with coronal and sagittal reformatted images were created and reviewed COMPARISON: Comparison is made with prior examinations. FINDINGS: Ventricles and Extra axial spaces: Normal in size and morphology for the patient's age. Hemorrhage: None. Cerebral parenchyma: Normal. Midline shift: None. Brainstem/Cerebellum: Normal. Calvarium: Normal. Visualized Paranasal sinuses/Mastoids: Clear. Soft Tissues: Unremarkable. IMPRESSION: No acute intracranial process. RADIATION DOSE DELIVERED: Total DLP DATA REPOSITORY: All CT scans at this facility are submitted to the National Radiology Data Registry (NRDR) Dose Index Registry (DIR) with the [employer] ([employer]). RADIATION OPTIMIZATION: All CT scans at this facility use at least one of these dose optimization te chniques: automated exposure control; mA and/or kV adjustment per patient size (includes targeted exa ms where dose is matched to clinical indication); or iterative reconstruction.
--- NOTE | 2023-09-10 17:45 | RT.EKG_ITS ---
APPROVED REPORT Exam: Resting ECG Reason for Exam: severe HTN, QTc check Patient Location: E HR:58 bpm ECG Measurements Heart Rate 58 AXIS SC 153 P 29 QRSd 86 QRS 53 QT 435 T 25 QTc 426 Conclusion Sinus bradycardia...rate< 60 I have reviewed and interpreted ECG and agree with software generated interpretation.
--- NOTE | 2023-09-10 17:49 | ED.GENADUL_ITS ---
Discharge Plan Disposition Patient Disposition: Home Condition: Stable Discharge Details Clinical Impression: Migraine syndrome Primary Care Provider: None,None ED Provider: Antoine Tapia Home Meds and New Rx's Prescriptions: New ondansetron 4 mg tablet,disintegrating 4 mg PO Q8H PRN (Reason: nausea/vomiting) Qty: 30 0RF sumatriptan succinate 25 mg tablet See Rx Instructions .ROUTE .COMPLEX Qty: 20 0RF Rx Instructions: take 1 tab at onset of headache; if no relief may repeat 1 tab after at least 2 hrs; max = 4 tabs/24 hr Continued sumatriptan succinate 100 mg tablet 50 mg PO PRN MDD 2 tabs (200mg) Rx Instructions: 1 tab at onset of headache; if no relief may repeat 1 tab in 2 hrs ondansetron 4 mg Tablet,Disintegrating 4 mg PO DIRECTED prochlorperazine maleate [Compazine] 10 mg tablet 10 mg PO Q6H PRNQty: 10 0RF Discharge Instructions Instructions: Ondansetron (By mouth), Sumatriptan (By mouth), Migraine Headache (ED), DASH Eating Plan (ED) Additional Instructions: You were seen in the emergency department for your migraine syndrome. You had very high blood pressure but your laboratory and imaging work-up is negative for endorgan damage from your hypertension. Please make lifestyle changes to lower your blood pressure, please contact primary care offices in the area to see if they can accept patients on a sliding scale basis. I have sent prescriptions of ondansetron and sumatriptan to [facility] in [place] to take for migraine relief. Please return to the ER for any neurologic abnormality like numbness, lethargy, especially severe headaches with fevers. Referrals: [facility] [Provider Group] [facility] [Provider Group] Medical Decision Making This dictation utilizes [id number] dictation software and may contain unedited grammatical errors. 47 y/o F presents to ED today with a chief complaint of migraine headache since this morning. Onset and characteristics include pounding frontal headache, some sinus congestion but denies neurological changes. States she has not been able to take her regular migraine medications because she has been nauseous/throwing up. Patient endorses blurred vision at screens, but denies floaters, denies thunderclap onset of headache, denies chest pain/flank pain. Patients' medical history: Migraine, asthma. Family and social history: tobacco use. Pertinent exam findings / vital signs include noted hypertension on arrival of 202/88, neurologically intact with a benign cardiopulmonary exam, no tachycardia. Differential / pathologies of concern include migraine, hypertensive emergency, DASHAWN, ACS, ICH. Diagnostic studies of: -CBC, CMP, Trop I, UA, EKG, CT Head wo Contrast. -CBC benign -Scr WNL -Trop I neg -EKG benign, QTc wnl, no ST changes -CT head shows no ICH -patient didn't provided urine for UA Interventions of: -migraine cocktail of IV APAP/Toradol (post CT confirming negative ICH), IV dexamethasone, IV Benadryl & Reglan, PO Sumatriptan, IVF. ED Course: Patient presents with a migraine syndrome, work-up shows no signs of endorgan damage and IV migraine cocktail is very effective in reducing her symptoms, patient feels well enough to go home. Does not have insurance or primary care at the moment I did see if she could be put on a list for care establishment but provided sumatriptan by prescription as well as ondansetron by prescription. Recommend she perform lifestyle changes like the DASH diet as she has never had hypertension before and these readings today were allegedly isolated. Findings not consistent with endorgan damage from hypertension, ICH, this is likely a migraine syndrome without neurologic abnormality. Disposition of Migraine Syndrome. Patient verbalized understanding of the plan and return to ED criteria and engaged in shared decision making. Medical Records Medical records reviewed: Yes I reviewed the patient's medical records. Imaging Data Radiologic Study: Imaging: CT Scan Radiologist's impression: vRad read shows no hydrocephalus, no acute intracranial hemorrhage or mass effect Lab Data Lab results reviewed: Yes I reviewed the patient's lab results. Labs: Laboratory Tests Range/Units 09/10/23 09/10/23 18:07 18:55 WBC (4.4-10.8) 10^3/uL 9.64 RBC (3.93-5.22) 10^6/uL 4.48 Hgb (11.2-15.7) g/dL 12.8 Hct (36.0-46.0) % 38.6 MCV (80-95) fL 86 MCH (27.0-33.0) pg 28.6 MCHC (32.0-36.0) % 33.2 RDW (11.7-14.6) % 13.1 Plt Count (130-400) 10^3/uL 325 MPV (8.0-11.0) fL 9.8 Immature Gran % 0.3 Neutrophils % 75.6 Lymphocytes % 15.2 Monocytes % 8.2 Eosinophils % 0.1 Basophils % 0.6 Nucleated RBC % (0.0-0.3) % 0.0 Absolute Neutrophils (1.2-6.7) 10^3/uL 7.28 H Absolute Lymphocytes (1.2-3.4) 10^3/uL 1.47 Absolute Monocytes (0.1-0.8) 10^3/uL 0.79 Absolute Eosinophils (0.0-0.7) 10^3/uL 0.01 Absolute Basophils (0.0-0.2) 10^3/uL 0.06 ESR (0-20) mm/hr 11 Sodium (136-145) mmol/L 139 Potassium (3.5-5.1) mmol/L 3.7 Chloride (98-107) mmol/L 107 Carbon Dioxide (21.0-32.0) mmol/L 22.2 Anion Gap (3-11) mmol/L 9.8 BUN (7-18) mg/dL 10 Creatinine (0.55-1.02) mg/dL 0.7 Est GFR (CKD-EPI 2020) (mL/min/1.73m2) 107.95 Glucose (74-106) mg/dL 102 Calcium (8.5-10.1) mg/dL 8.4 L Total Bilirubin (0.2-1.0) mg/dL 0.3 AST (15-37) U/L 19 ALT (14-59) U/L 24 Alkaline Phosphatase (46-116) U/L 87 Troponin I (<or=60) ng/L < 50 C-Reactive Protein (0.0-0.3) mg/dL 0.55 H Total Protein (6.4-8.2) g/dL 7.3 Albumin (3.4-5.0) g/dL 3.5 COVID-19 Source Nasopharynx SARS-CoV-2 (PCR) (Negative) Negative Influenza Type A (PCR) (Negative) Negative Influenza Type B (PCR) (Negative) Negative RSV (PCR) (Negative) Negative HPI General Date/Time Provider Initiated Documentation: 09/10/23 17:49 . HPI Narrative: 47 year-old female presents to ED today by POV/ambulating with her spouse with a chief complaint of migraine headache with onset since awakening this morning. States she has had chronic migraines for many years and this feels similar. Quality described as pounding frontal headache with mild blurred vision when looking at screens- which is normal for her migraines, no radiation to slurred speech, repetitive questioning, new floaters, blindness, chest pain, flank pain, dizziness/vertigo, endorses nausea/vomiting that has prevented her from taking migraine medications. Severity is described as 9/10. Palliating factors include nothing specific attempted. Provoking factors include nothing specific. Events leading up to the incident/Associated Symptoms: patient states that her blood pressure has been bad for the last few weeks, denies history of HTN. Patient not anticoagulated. Related Data Home Medications Medication Instructions Recorded Confirmed ondansetron 4 mg disintegrating 4 mg PO DIRECTED 01/23/22 01/23/22 tablet prochlorperazine maleate 10 mg 10 mg PO Q6H PRN #10 tabs 01/23/22 tablet (Compazine) sumatriptan succinate 100 mg tablet 50 mg PO PRN migraine headache 01/23/22 01/23/22 ondansetron 4 mg disintegrating 4 mg PO Q8H PRN nausea/vomiting 09/10/23 tablet #30 tabs sumatriptan succinate 25 mg tablet See Rx Instructions PO .COMPLEX 09/10/23 migraine #20 tabs Previous Rx's Medication Instructions Recorded prochlorperazine maleate 10 mg 10 mg PO Q6H PRN #10 tabs 01/23/22 tablet (Compazine) ondansetron 4 mg disintegrating 4 mg PO Q8H PRN nausea/vomiting 09/10/23 tablet #30 tabs sumatriptan succinate 25 mg tablet See Rx Instructions PO .COMPLEX 09/10/23 migraine #20 tabs Allergies Allergy/AdvReac Type Severity Reaction Status Date / Time erythromycin base AdvReac Intermediate Skin Rash Verified 01/23/22 10:12 [Erythromycin Base] General Stated Complaint: Headache OLIVIA: 3 Review of Systems All systems reviewed & are unremarkable except as noted in HPI and below PFSH All Active Problems (Updated 09/10/23 @ 19:57 by SAMIR Mcdaniel) Migraine syndrome (Acute) Migraine (Chronic) Increased body mass index (BMI) (Acute) Encounter for annual physical exam (Acute) Nausea & vomiting (Acute) Insomnia disorder, with non-sleep disorder mental comorbidity, episodic (Acute) Migraine (Chronic) Chronic bilateral low back pain without sciatica (Chronic 02/07/17) Asthma (Chronic) Anxiety and depression (Acute 08/27/17) Medical History Anxiety and depression (08/27/17) Asthma Chronic bilateral low back pain without sciatica (02/07/17) Encounter for annual physical exam History of tobacco use (12/10/16) Increased body mass index (BMI) Migraine Surgical History History of bilateral tubal ligation Family History Mother Alcohol abuse Brother Substance abuse Depression Maternal Grandmother Heart disease Son Alcohol abuse Daughter Asthma Daughter Depression Anxiety Maternal Grandfather No problems noted. Social History Smoking/Tobacco Use Status: Former Tobacco Use Quit Date: 11/20/15 Tobacco: How many years used: 10 Smoking risk assessment performed?: Yes Alcohol Intake: former Drug use: Daily Substance use type: marijuana Counseling given: No Counseling provided: none Caregiver/Support person: No Household members: spouse, children and other Details: daughter & boyfriend/son & Housing: house Communication Needs: None Do you need help understanding health information?: Rarely 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ICE Pets and animals: Yes Pets and animals: cat(s) and dog(s) Sexually active: Yes Do you think of yourself as: straight/heterosexual Current gender identity: female What is your relationship status?: How often do you talk on the phone with friends or family?: three or more times per week How often do you get together with friends or relatives?: three or more times p er week How often do you attend presybeterian or gnosticist services?: decline to answer Do you belong to any clubs or organized social groups?: no Panel score (0-1 are the most socially isolated patients): 2 What type of physical activity do you participate in: walking Duration: 30-45 minutes/day Frequency: 3-4 times per week Angelina/Restorationism: No preference Special angelina needs: No Seatbelt use: never Helmet use: Yes Helmet use: always Drive intox or ride w/intox truck driver supervisor: No Do you feel safe at home: Yes Do you feel safe in your relationship?: Yes Exam Narrative Exam Narrative: GENERAL APPEARANCE: Well-nourished, non-toxic, awake and alert, atraumatic, no acute distress. SKIN: Warm, pink, dry, intact, without rashes/lesions/ulcerations. HEAD: Normocephalic, atraumatic, normal hair distribution for gender/age. EYES: Pupils PERRLA, EOMs intact without nystagmus, normal conjunctiva, no exudates on lids/lashes. ENT: Nares patent, no circumoral cyanosis, no facial swelling NECK: Supple, trachea midline, painless cervical ROM. LUNGS/CHEST: Lungs CTA bilaterally - no rhonchi/rales/wheezes diffusely, non- labored respirations, normal A/P diameter, symmetrical expansion, no chest wall deformity HEART (CV/PV): Regular rate and rhythm without murmur, no peripheral edema, no JVD. ABDOMEN: Soft, non-distended, no guarding. MSK: Normal ROM, no swelling/deformity to bilateral UEs or LEs, moving all extremities without weakness, no cyanosis, spine midline without tenderness, normal curvature. NEURO: Mental Status AAOx4 - alert to person, place, time, events No facial droop, no forehead involvement. Motor: No focal weakness - strength 5/5 in bilateral UEs and LEs, proximal and distal, symmetric, no pronator drift Sensory: sensation intact to light touch globally. Gait normal: patient ambulated without ataxia into ED room. PSYCH: euthymic, cooperative, pleasant, appropriate speech Course Vital Signs Vital signs: Vital Signs Temperature 36.1 C L 09/10/23 17:39 Pulse 64 09/10/23 17:39 Respiratory Rate 18 09/10/23 17:39 Blood Pressure 202/88 H 09/10/23 17:39 Pulse Oximetry 98 09/10/23 17:39 Temperature 36.1 C L 09/10/23 17:39 Temperature Source Temporal Artery Scan 09/10/23 17:39 Pulse 64 09/10/23 17:39 Respiratory Rate 18 09/10/23 17:39 Blood Pressure 202/88 H 09/10/23 17:39 Blood Pressure Position Supine 09/10/23 17:39 Pulse Oximetry 98 09/10/23 17:39 Oxygen Delivery Method Room Air 09/10/23 17:39 Oxygen Flow Rate 0 09/10/23 17:39
[2023-09-10] MEDS: Normal Saline 1,000 ML 1000 ML IV (18:59)
[2023-09-10 19:03] LABS: ESR 11 mm/hr (0-20)
[2023-09-10 19:04] LABS: COVID-19 PCR Negative (Negative); Influenza A PCR Negative (Negative); Influenza B PCR Negative (Negative); RSV PCR Negative (Negative)
[2023-09-10 19:05] LABS: Source Nasopharynx
[2023-09-10 19:06] LABS: Abs Immature Grans 0.03 10^3/uL (0.0-0.06); Absolute Basophil Count 0.06 10^3/uL (0.0-0.2); Absolute Eosinophil Count 0.01 10^3/uL (0.0-0.7); Absolute Lymphocyte Count 1.47 10^3/uL (1.2-3.4); Absolute Monocyte Count 0.79 10^3/uL (0.1-0.8); Absolute Neutrophil Count 7.28 10^3/uL (1.2-6.7); Basophils % 0.6; Eosinophils % 0.1; HCT 38.6 % (36.0-46.0); HGB 12.8 g/dL (11.2-15.7); Immature Grans % 0.3; Lymphocytes % 15.2; MCH 28.6 pg (27.0-33.0); MCHC 33.2 % (32.0-36.0); MCV 86 fL (80-95); MPV 9.8 fL (8.0-11.0); Monocytes % 8.2; Neutrophils % 75.6; Platelet Count 325 10^3/uL (130-400); RBC 4.48 10^6/uL (3.93-5.22); RDW 13.1 % (11.7-14.6); RDW-SD 41.2 fL; WBC 9.64 10^3/uL (4.4-10.8)
[2023-09-10 19:17] LABS: ALT 24 U/L (14-59); AST 19 U/L (15-37); Albumin 3.5 g/dL (3.4-5.0); Alkaline Phosphatase 87 U/L (46-116); Anion Gap 9.8 mmol/L (3-11); BUN 10 mg/dL (7-18); Bilirubin, Total 0.3 mg/dL (0.2-1.0); CO2 22.2 mmol/L (21.0-32.0); CREATININE 0.7 mg/dL (0.55-1.02); Calcium 8.4 mg/dL (8.5-10.1); Chloride 107 mmol/L (98-107); Estimated GFR 107.95 (mL/min/1.73m2); Glucose 102 mg/dL (74-106); Potassium 3.7 mmol/L (3.5-5.1); Sodium 139 mmol/L (136-145); Total Protein 7.3 g/dL (6.4-8.2)
[2023-09-10 19:19] LABS: C-Reactive Protein 0.55 mg/dL (0.0-0.3); Troponin I < 50 ng/L (<or=60)
[2023-09-10] MEDS: diphenhydrAMINE 50 MG/ML VIAL 25 MG IVP (19:26)
[2023-09-10] MEDS: SUMAtriptan 25 MG TAB PO (19:27)
[2023-09-10] MEDS: Ketorolac 15 MG/ML VIAL IVP (19:27)
[2023-09-10] MEDS: ACETAMINOPHEN 1,000 MG/100 ML BTL 400 MG IVPB (19:27)
[2023-09-10] MEDS: Dexamethasone 10 MG/ML VIAL IVP (19:27)
[2023-09-10] MEDS: Metoclopramide 10 MG/2 ML VIAL IVP (19:27)
--- NOTE | 2023-09-10 19:48 | DI.VRAD_ITS ---
PROCEDURE INFORMATION: Exam: CT Head Without Contrast Exam date and time: 09/10/2023 7:06 PM Age: 47 years old Clinical indication: Headache, severe HTN TECHNIQUE: Imaging protocol: Computed tomography of the head without contrast. COMPARISON: CT Head^HEAD ROUTINE (Adult) 10/26/2018 3:51 PM FINDINGS: Brain: No evidence for acute transcortical infarct. No mass effect or midline shift. No extra-axial collection. No acute intracranial hemorrhage. Basal cisterns are patent. Cerebral ventricles: No ventriculomegaly. Paranasal sinuses: Visualized sinuses are unremarkable. No fluid levels. Mastoid air cells: Visualized mastoid air cells are well aerated. Bones/joints: Unremarkable. No acute fracture. Soft tissues: Unremarkable. IMPRESSION: No hydrocephalus, acute intracranial hemorrhage, or mass effect. Dictated and Authenticated by: Simon Landis MD. Ordering:TINY Schultz MD
[2023-09-10 19:56] LABS: Bilirubin Negative (Negative); Blood Large (Negative); Clarity Cloudy (Clear); Glucose Negative (Negative); Ketones 40 mg/dL (Negative); Leukocyte Esterase Negative (Negative); Nitrite Negative (Negative); Specific Gravity 1.025 (1.005-1.025); Urobilinogen 0.2 mg/dL (Up to 0.2)
--- NOTE | 2023-09-10 20:03 | NUR.NOTE ---
Referral to Care Management to help patient establish pcp. Nursing Note:
[2023-09-10 20:04] LABS: Bacteria Few HPF (Negative); C & S Indicated? Yes; Casts Negative LPF (Negative); Crystals Negative HPF (Negative); Epithelial Cells Few HPF (Negative); Mucus Heavy (Negative); RBC >50 HPF (0-2)
== END 2023-09-10 20:14 | disposition home or self-care (01) ==
PROVIDERS: Emergency Provider Physician Assistant
DX: G43.809 Other migraine, not intractable, without status migrainosus (principal); R11.2 Nausea with vomiting, unspecified; R03.0 Elevated blood-pressure reading, without diagnosis of hypertension
CPT/HCPCS: 36415; 80053; 85652; 87637; 93005; 96365; 96375; 99285; 70450; 81003; 81015; 84484; 85025; 86140; 87086; 93010; 99284; J0131; J1100; J1200; J1885; J2765

== ENCOUNTER 2024-12-22 12:09 | Emergency (ER) | payer SELFPAY ==
[2024-12-22 12:12] VITALS: BP 169/124; PULSE 130; RESP 18; TEMP 36.8; O2SAT 98
[2024-12-22 12:14] VITALS: BP 169/124; PULSE 130; RESP 18; TEMP 36.8; O2SAT 98
[2024-12-22] MEDS: Benzocaine 20% Gel 30 GM JAR MM (12:37)
[2024-12-22] MEDS: Bupivacaine 0.5% Pres-Free 30 ML VIAL IJ (12:37)
[2024-12-22 13:03] VITALS: BP 156/92; PULSE 78; O2SAT 97
--- NOTE | 2024-12-23 08:24 | ED.GENADUL_ITS ---
Discharge Plan Disposition Patient Disposition: Home Condition: Stable Discharge Details Clinical Impression: Dental abscess Primary Care Provider: Citlali Smyht ED Provider: Jessica Martinez Home Meds and New Rx's Prescriptions: New penicillin V potassium 500 mg tablet 500 mg PO Q6H 10 Days Qty: 40 0RF Continued chlorthalidone 25 mg tablet 25 mg PO DAILY Qty: 90 3RF Rx Instructions: take 1/2 tablet daily for 1 week and then go to a full tablet. buspirone 15 mg tablet 15 mg PO BID Qty: 180 1RF sumatriptan succinate 25 mg tablet See Rx Instructions .ROUTE .COMPLEX Qty: 20 0RF Rx Instructions: take 1 tab at onset of headache; if no relief may repeat 1 tab after at least 2 hrs; max = 4 tabs/24 hr ondansetron 4 mg tablet,disintegrating 4 mg PO Q8H PRN (Reason: nausea/vomiting) Qty: 30 0RF Discharge Instructions Additional Instructions: take antibiotic as prescribed motrin and tylenol as needed for pain per pkg instructions f/u with dentist to schedule appointment continue on your prescribed medications please return earlier should you have new or worsening complaints Referrals: Citlali Smyth NP [Primary Care Provider] - Discharge Data Discharge Date/Time-TO BE ENTERED AT DEPARTURE: 12/22/24 13:20 HPI General Date/Time Provider Initiated Documentation: 12/22/24 12:17 . HPI Narrative: The patient is a 49-year-old female with a history of hypertension who presents with left lower dental pain that started approximately 2 weeks ago and worsened yesterday. She has been taking Motrin for pain, which provides only mild relief. She does not have a dentist currently as she was caring for her on hospice who recently on Friday at 0000 hours. Related Data Home Medications ?Medication ?Instructions ?Recorded ?Confirmed ondansetron 4 mg disintegrating 4 mg PO Q8H PRN nausea/vomiting 09/10/23 12/22/24 tablet #30 tabs chlorthalidone 25 mg tablet 25 mg PO DAILY #90 tabs 10/27/24 12/22/24 buspirone 15 mg tablet 15 mg PO BID #180 tabs 12/13/24 12/22/24 sumatriptan succinate 25 mg tablet See Rx Instructions PO .COMPLEX 12/13/24 12/22/24 migraine #20 tabs penicillin V potassium 500 mg 500 mg PO Q6H 10 days #40 tabs 12/22/24 tablet Previous Rx's ?Medication ?Instructions ?Recorded ondansetron 4 mg disintegrating 4 mg PO Q8H PRN nausea/vomiting 09/10/23 tablet #30 tabs chlorthalidone 25 mg tablet 25 mg PO DAILY #90 tabs 10/27/24 buspirone 15 mg tablet 15 mg PO BID #180 tabs 12/13/24 sumatriptan succinate 25 mg tablet See Rx Instructions PO .COMPLEX 12/13/24 migraine #20 tabs penicillin V potassium 500 mg 500 mg PO Q6H 10 days #40 tabs 12/22/24 tablet Allergies Allergy/AdvReac Type Severity Reaction Status Date / Time erythromycin base AdvReac Intermediate Skin Rash Verified 12/22/24 12:14 (Erythromycin Base) General Stated Complaint: DentalOral OLIVIA: 4 Exam Narrative Exam Narrative: General Appearance: Patient is alert and oriented. Vital signs: Within normal limits. HEENT: No notable facial swelling or submandibular swelling. Very mild trismus without any evidence of a deep space infection. No fluctuant abscess that appears drainable. Suspect number 17 with erythema surrounding with exquisite tenderness. Oropharynx patent. Uvula midline. Respiratory: No respiratory distress. No evidence of Tiffanie's angina. Cardiovascular: Cardiac rate and rhythm are regular. Skin: Warm and dry, no rash. Neurological: Normal. Course Vital Signs Vital signs: Vital Signs Temperature 36.8 C 12/22/24 12:12 Pulse 130 H 12/22/24 12:12 Respiratory Rate 18 12/22/24 12:12 Blood Pressure 169/124 H 12/22/24 12:12 Pulse Oximetry 98 12/22/24 12:12 Temperature 36.8 C 12/22/24 12:14 Pulse 78 12/22/24 13:03 Respiratory Rate 18 12/22/24 12:14 Blood Pressure 156/92 H 12/22/24 13:03 Pulse Oximetry 97 12/22/24 13:03 Oxygen Delivery Method Room Air 12/22/24 13:03 Oxygen Flow Rate 0 12/22/24 13:03 Pain Level 9 12/22/24 12:14 Medical Decision Making PROCEDURE: An inferior alveolar nerve block was performed with 2 cc of 0.5 percent Marcaine after topical application of Hurricaine gel over the left lower region of insertion. The patient tolerated this procedure with scant bleeding after the installation of medication and injection and had almost complete resolution of pain. Initial Assessment: 49-year-old female with history of hypertension presents with left lower dental pain starting approximately 2 weeks ago, worsening yesterday. Mild relief with Motrin. ED Course: - No notable facial or submandibular swelling. - Mild trismus without evidence of deep space infection. - No fluctuant abscess. - Tooth #17 with erythema and exquisite tenderness. - Inferior alveolar nerve block performed with 2 cc of 0.5% Marcaine after topical application of Hurricaine gel, resulting in almost complete resolution of pain. - Placed on penicillin for suspected dental abscess. - Given rest of the jar of Hurricaine gel for topical use as needed. - Advised to call [facility] to schedule an appointment for further evaluation. - Continue Motrin and Tylenol and other supportive care at home. - Given threshold to return should she have new or worsening complaints. Final Assessment: Suspected dental abscess with significant improvement post nerve block and supportive care. No evidence of significant deep space infection at discharge. Clinical Impression: - Suspected dental abscess Disposition: - Discharge: Patient discharged home in improved condition with stabilized vitals. - Follow-Up: Call [facility] to schedule an appointment for further evaluation. MDM Components Evaluation: - Number of Differential Diagnoses or Management Options: Suspected dental abscess - Amount and Complexity of Data Reviewed: Physical examination, nerve block procedure, patient history - Risk of Complication and Morbidity or Mortality: Low risk given no evidence of deep space infection and significant improvement post-treatment. Quality:SDOH Health Related Social Needs: No Data to Display PFSH All Active Problems (Updated 12/23/24 @ 08:43 by SAMIR Mueller) Dental abscess (Acute) Hypertension (Chronic) Migraine (Chronic) Increased body mass index (BMI) (Acute) Encounter for annual physical exam (Acute) Nausea & vomiting (Acute) Insomnia disorder, with non-sleep disorder mental comorbidity, episodic (Acute) Migraine (Chronic) Chronic bilateral low back pain without sciatica (Chronic 02/07/17) Asthma (Chronic) Anxiety and depression (Acute 08/27/17) Medical History Anxiety and depression (08/27/17) Asthma Chronic bilateral low back pain without sciatica (02/07/17) Encounter for annual physical exam History of tobacco use (12/10/16) Increased body mass index (BMI) Migraine Surgical History History of bilateral tubal ligation Family History Mother Alcohol abuse Brother Substance abuse Depression Maternal Grandmother Heart disease Son Alcohol abuse Daughter Asthma Daughter Depression Anxiety Maternal Grandfather No problems noted. Social History (Updated 10/01/23 @ 17:47 by Barb Alvarado) Smoking/Tobacco Use Status: Former Tobacco Use tobacco type: cigarettes Quit Date: 09/19/07 Tobacco: How many years used: 10 Second Hand Exposure: Yes Smoking risk assessment performed?: Yes Alcohol Intake: never Drug use: Daily Substance use type: marijuana Counseling given: No Counseling provided: none Adopted: No Caregiver/Support person: No Foster care: No Household members: spouse Housing: house Number of Children: 3 Communication Needs: Corrective Lenses Education Level: high school Details: completed 10th grade Do you need help understanding health information?: Rarely current occupation: Daycare cook Pets and animals: Yes Pets and animals: dog(s) and other Details: chickens Sexually active: Yes Do you think of yourself as: straight/heterosexual Current gender identity: female What is your relationship status?: How often do you talk on the phone with friends or family?: twice per week How often do you get together with friends or relatives?: twice per week How often do you attend mu-ism or spiritism services?: 4 or more times per year Do you belong to any clubs or organized social groups?: no Panel score (0-1 are the most socially isolated patients): 3 What type of physical activity do you participate in: walking Duration: 15-30 minutes/day Frequency: 3-4 times per week Angelina/Druze: Congregational Special angelina needs: No Agree to transfusion: Yes Seatbelt use: sometimes Helmet use: Yes Helmet use: always Drive intox or ride w/intox shuttle 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
== END 2024-12-22 13:20 | disposition home or self-care (01) ==
PROVIDERS: Emergency Provider Physician Assistant; PCP Nurse Practitioner Family
DX: R68.84 Jaw pain (principal); K04.7 Periapical abscess without sinus
CPT/HCPCS: 64400; J0665